=== PATIENT | male | born 1980 | race Native Hawaiian/Other Pacific Islander ===

== ENCOUNTER → 2024-01-15 13:44 | Outpatient (CLI) | payer OTHER, SELFPAY ==
--- NOTE | 2024-01-15 13:51 | DI.RAD.S_ITS ---
PROCEDURE: XR LUMBAR SPINE 2-3V INDICATIONS: SPINE PAIN TECHNIQUE: 3 views of the lumbar spine were acquired. COMPARISON: None. FINDINGS: Bones: 5 [id number] vertebrae are present. There is normal bony alignment. Degenerative endplate changes are noted at L3-4 through L5-S1 levels. No vertebral body compression fractures. No suspicious bony lesions. Soft tissues: Overlying bowel gas pattern is normal. No suspicious soft tissue calcifications. IMPRESSION: Mild degenerative disc disease in lower lumbar spine. No compression fracture or spondylolisthesis. Dictated by: Devyn Rivera M.D. on 01/15/2024 at 15:47 Approved by: Devyn Rivera M.D. on 01/15/2024 at 15:47
== END ==
PROVIDERS: Referring Provider Chiropractor; Visit Provider Chiropractor
DX: S33.5XXA Sprain of ligaments of lumbar spine, initial encounter (principal); X58.XXXA Exposure to other specified factors, initial encounter
CPT/HCPCS: 72100

== ENCOUNTER 2024-02-29 10:20 | Emergency (ER) | payer OTHER, SELFPAY ==
[2024-02-29] VITALS (8 sets, daily range): BP systolic 115–131; BP diastolic 77–88; PULSE 69–83; RESP 18; TEMP 36.3; O2SAT 97–99; BMI 30.9
[2024-02-29 11:16] LABS: Add Manual Diff / Slide Review NO; Basophils Absolute Auto 100 /uL (0-100); Basophils Percent Auto 1.4 % (0-2); Eosinophils Absolute Auto 100 /uL (0-450); Eosinophils Percent Auto 1.9 % (2-4); Hematocrit 40.1 % (41-53); Lymphocytes Absolute Auto 2200 /uL (1100-4500); Lymphocytes Percent Auto 28.3 % (25-40); Mean Corpuscular HGB Conc 34.9 % (30-36); Mean Corpuscular Hemoglobin 29.9 PG (26-34); Mean Corpuscular Volume 85.7 fL (80-100); Monocytes Absolute Auto 700 /uL (0-900); Monocytes Percent Auto 8.7 % (3-14); Neutrophils Absolute Auto 4600 /uL (1500-7000); Neutrophils Percent Auto 59.7 % (50-75); Platelet Count 340 X10^3/uL (150-400); Red Blood Cell Count 4.67 X10^6/uL (4.5-5.9); Red Cell Distribution Width 14.8 % (11.6-14.8); White Blood Cell Count 7.6 X10^3/uL (4.5-11.0)
[2024-02-29 11:25] LABS: Alanine Aminotransferase 146 IU/L (<50); Albumin 4.6 g/dL (3.5-5.0); Albumin Globulin Ratio 1.1 (1.0-2.8); Alkaline Phosphatase 324 U/L (38-126); Aspartate Aminotransferase 92 IU/L (17-59); BUN Creatinine Ratio 17.1 (6-22); Bilirubin Total 3.6 mg/dL (0.2-1.3); Blood Urea Nitrogen 14 mg/dL (9-20); Calcium 9.6 mg/dL (8.4-10.2); Carbon Dioxide 25 mmol/L (22-32); Chloride 107 mmol/L (98-107); Estimated Glomerular Filt Rate > 60 mL/min (>60); Globulin 4.1 g/dL (1.7-4.1); Glucose 125 mg/dL (70-100); HEMOLYSIS 16 (0-50); Lipase 520 U/L (23-300); Potassium 4.3 mmol/L (3.4-5.1); Sodium 138 mmol/L (137-145); Total Protein 8.7 g/dL (6.3-8.2)
--- NOTE | 2024-02-29 11:31 | DI.US.S_ITS ---
PROCEDURE: US ABDOMEN LIMITED INDICATIONS: Itching, hyperbilirubinemia, transaminitis TECHNIQUE: Real-time focused scanning was performed of the abdomen, with image documentation. COMPARISON: None. FINDINGS: Liver is within normal limits. 7 mm polyp within the anterior wall of the gallbladder. No evidence of gallbladder wall thickening. Mild intrahepatic biliary ductal dilatation. Pancreas is not well seen. IMPRESSION: 1. No acute process. 2. Gallbladder polyp. 3. Mild intrahepatic biliary ductal dilatation. Dictated by: Mell Peoples M.D. on 02/29/2024 at 12:50 Approved by: Mell Peoples M.D. on 02/29/2024 at 12:51
--- NOTE | 2024-02-29 11:31 | ED_ITS ---
HPI - General Adult General Chief complaint: Abdominal Pain Stated complaint: itching on body, dark urine, yellow on eye Time Seen by Provider: 02/29/24 11:21 Source: patient Mode of arrival: Ambulatory History of Present Illness HPI narrative: Patient is a 43-year-old male who comes in the emergency department for evaluation of several days of itching all over his body. He also reports dark- colored urine. He states his states that he has yellow colored eyes. He denies any fevers. He has drank alcohol in the past but not for several months. Reports no abdominal pain. No change in bowel habits. No skin rashes. No fevers. He does report a weight loss over the past several weeks as well. He was scheduled to see a new primary doctor in the next several days. Related Data Allergies Allergy/AdvReac Type Severity Reaction Status Date / Time No Known Drug Allergies Allergy Verified 02/29/24 10:56 Review of Systems Review of Systems ROS Unobtainable: All systems reviewed & are unremarkable except as noted in HPI and below Patient History Social History Smoking Status: Current some day smoker Smoking Status: Current some day smoker tobacco type: vaping alcohol intake frequency: 0-2 drinks per day Exam Initial Vital Signs Initial Vital Signs: Vital Signs Temperature 97.4 F L 02/29/24 10:51 Pulse Rate 83 02/29/24 10:51 Respiratory Rate 18 02/29/24 10:51 Blood Pressure 131/79 02/29/24 10:51 Pulse Oximetry 98 02/29/24 10:51 Oxygen Delivery Method Room Air 02/29/24 10:51 Const General: cooperative, comfortable and No ill appearing [facility] Head: normal to inspection and normocephalic Eyes Other: Mild scleral icterus GI Inspection: normal to inspection and non-distended Skin General: no rashes or lesions noted and No jaundice Neuro General: patient alert, patient awake and moves all extremities Extrem General: normal to inspection and capillary refill normal Course Orders Ordered: ED Orders 02/29/24 11:00 Acetaminophen Stat Complete Blood Count AUTO DIFF Stat Comprehensive Metabolic Panel Stat Ethanol (ETOH) Stat Hepatitis Acute Panel Stat Lipase Stat 02/29/24 11:31 US abdomen limited Stat 02/29/24 12:05 Urine Culture Stat Urine Microscopic Stat Discontinued Medications Ondansetron HCl (Ondansetron 4 Mg/2 Ml Inj) 4 mg IV NOW PRN PRN Reason: Nausea And Vomiting Ondansetron HCl (Ondansetron 4 Mg Odt) 4 mg PO NOW PRN PRN Reason: Nausea And Vomiting Vital Signs Vital signs: Vital Signs - 8 hr 02/29/24 10:51 02/29/24 11:23 02/29/24 11:23 Temperature 97.4 F L Pulse Rate 83 81 Respiratory Rate 18 Blood Pressure 131/79 124/84 Pulse Oximetry 98 99 Oxygen Delivery Method Room Air 02/29/24 11:30 02/29/24 11:30 02/29/24 12:00 Temperature Pulse Rate 79 77 Respiratory Rate Blood Pressure 129/88 Pulse Oximetry 99 97 Oxygen Delivery Method Room Air 02/29/24 12:01 02/29/24 12:01 02/29/24 12:30 Temperature Pulse Rate 78 74 Respiratory Rate Blood Pressure 122/81 Pulse Oximetry 99 99 Oxygen Delivery Method 02/29/24 12:31 02/29/24 12:31 02/29/24 13:00 Temperature Pulse Rate 74 69 Respiratory Rate Blood Pressure 115/83 Pulse Oximetry 99 99 Oxygen Delivery Method 02/29/24 13:00 Temperature Pulse Rate Respiratory Rate Blood Pressure 116/77 Pulse Oximetry Oxygen Delivery Method Medical Decision Making Lab Data Lab results reviewed: Yes I reviewed the patient's lab results. 02/29/24 11:00 02/29/24 11:00 Labs: Lab Results 02/29/24 02/29/24 Range/Units 11:00 12:05 WBC 7.6 (4.5-11.0) X10^3/uL RBC 4.67 (4.5-5.9) X10^6/uL Hgb 14.0 (13.5-17.5) g/dL Hct 40.1 L (41-53) % MCV 85.7 (80-100) fL MCH 29.9 (26-34) PG MCHC 34.9 (30-36) % RDW 14.8 (11.6-14.8) % Plt Count 340 (150-400) X10^3/uL Neut % (Auto) 59.7 (50-75) % Lymph % (Auto) 28.3 (25-40) % [place] % (Auto) 8.7 (3-14) % Eos % (Auto) 1.9 L (2-4) % Baso % (Auto) 1.4 (0-2) % Neut # (Auto) 4600 (9648-4507) /uL Lymph # (Auto) 2200 (0321-5537) /uL [place] # (Auto) 700 (0-900) /uL Eos # (Auto) 100 (0-450) /uL Baso # (Auto) 100 (0-100) /uL Sodium 138 (137-145) mmol/L Potassium 4.3 (3.4-5.1) mmol/L Chloride 107 (98-107) mmol/L Carbon Dioxide 25 (22-32) mmol/L BUN 14 (9-20) mg/dL Creatinine 0.82 (0.66-1.25) mg/dL Estimated GFR > 60 (>60) mL/min BUN/Creatinine Ratio 17.1 (6-22) Glucose 125 H (70-100) mg/dL Calcium 9.6 (8.4-10.2) mg/dL Total Bilirubin 3.6 H (0.2-1.3) mg/dL AST 92 H (17-59) IU/L ALT 146 H (<50) IU/L Alkaline Phosphatase 324 H (38-126) U/L Total Protein 8.7 H (6.3-8.2) g/dL Albumin 4.6 (3.5-5.0) g/dL Globulin 4.1 (1.7-4.1) g/dL Albumin/Globulin Ratio 1.1 (1.0-2.8) Lipase 520 H (23-300) U/L Urine RBC None seen (0-5/HPF) Urine WBC None seen (0-5/HPF) Ur Squamous Epith Cells 0-1 /hpf (0-5/HPF) Urine Bacteria None seen (None) Hyaline Casts 5-10/lpf (None) Vol Urine Centrifuged 10ml (spun) Acetaminophen < 10 (10-30) ug/mL Ethyl Alcohol < 10 ( - 10) mg/dL Urine Dip Bedside Urine Glucose Negative Bedside Urine Bilirubin - Negative Bedside Urine Ketone - Negative Urine Specific [place] 1.020 Bedside Urine Occult Blood - Negative Bedside Urine pH 5.5 Bedside Urine Protein + 30 Bedside Urine Urobilinogen - Negative Bedside Urine Nitrite - Negative Bedside Urine Leukocytes - Negative Esterase Point of care testing: Urine Dip Bedside Urine Glucose Negative Bedside Urine Bilirubin - Negative Bedside Urine Ketone - Negative Urine Specific [place] 1.020 Bedside Urine Occult Blood - Negative Bedside Urine pH 5.5 Bedside Urine Protein + 30 Bedside Urine Urobilinogen - Negative Bedside Urine Nitrite - Negative Bedside Urine Leukocytes - Negative Esterase Imaging Data US - abdomen: Radiologist's Impression: PROCEDURE: US ABDOMEN LIMITED INDICATIONS: Itching, hyperbilirubinemia, transaminitis TECHNIQUE: Real-time focused scanning was performed of the abdomen, with image documentation. COMPARISON: None. FINDINGS: Liver is within normal limits. 7 mm polyp within the anterior wall of the gallbladder. No evidence of gallbladder wall thickening. Mild intrahepatic biliary ductal dilatation. Pancreas is not well seen. IMPRESSION: 1. No acute process. 2. Gallbladder polyp. 3. Mild intrahepatic biliary ductal dilatation. MDM Narrative Medical decision making narrative: Patient does have an elevation in his LFTs and bilirubin. His right upper quadrant ultrasound is unremarkable. No signs of acute cholecystitis. No indication for emergent surgical consultation. No indication for admission to the hospital. Will discharge the patient home. He has a follow-up on Thursday this week with his primary care doctor. He was given a copy of his labs and his ultrasound. Advised that he talk with his primary doctor about further evaluation and treatment. He expressed understanding and agreement with plan. Discharge Plan Departure Patient Disposition: Home Clinical Impression: Transaminitis, Hyperbilirubinemia Activity Restrictions/Additional Instructions: Recommend that you keep your scheduled appointment with your primary care provider's office later this week. Show them the labs that we did today and also the ultrasound. You can discuss with him further workup of your elevated liver function tests. Return to the emergency department for new or worsening symptoms. Stand Alone Forms: Patient Portal/API
[2024-02-29 11:58] LABS: Acetaminophen < 10 ug/mL (10-30)
[2024-02-29 11:59] LABS: Ethanol (ETOH) < 10 mg/dL
[2024-02-29 12:20] LABS: Bacteria Urine None Seen; Hyaline Casts Urine 5-10/LPF; RBC Urine None Seen (0-5/HPF); Squamous Epithelial Cell Urine 0-1 /HPF (0-5/HPF); Urine Volume 10mL (spun); WBC Urine None Seen (0-5/HPF)
[2024-03-01 03:36] LABS: HBsAg Screen Negative (Negative); Hepatitis A Antibody IgM Negative (Negative); Hepatitis B Core Antibody IgM Negative (Negative); Hepatitis C Antibody Non Reactive (Non Reactive)
== END 2024-02-29 13:30 | disposition home or self-care (01) ==
PROVIDERS: Emergency Provider Emergency Medicine
DX: E80.6 Other disorders of bilirubin metabolism (principal); R74.01 Elevation of levels of liver transaminase levels
CPT/HCPCS: 36415; 76705; 80053; 80074; 80320; 80329; 81003; 81015; 83690; 85025; 87086; 99283; 99284; G0480

== ENCOUNTER → 2024-03-18 10:46 | Outpatient (CLI) | payer OTHER, SELFPAY ==
--- NOTE | 2024-03-18 10:47 | DI.MRI.S_ITS ---
PROCEDURE: MR ABDOMEN WO/W CON INDICATIONS: Abnormal levels of other serum enzymes TECHNIQUE: Coronal HASTE, axial 2D FLASH in- and [id number]; axial breath-hold T2 FSE. Dynamic axial VIBE during the administration of contrast; post-contrast coronal VIBE or 2D FLASH with fat saturation from the hepatic dome to the iliac crests. Optional diffusion weighted imaging and ADC may be performed. COMPARISON: [facility], US, US ABDOMEN LIMITED, 02/29/2024, 12:05. [employer], US, US ABDOMEN LIMITED, 01/15/2024, 10:51. FINDINGS: Image quality: Decreased due to prominent motion artifact. Lung bases: No pleural or pericardial effusions. Liver: Elongated left hepatic lobe. Normal hepatic signal. Smooth margin. Gallbladder: Normal gallbladder wall thickening. There is a single enhancing nodular focus adherent to the superior wall consistent with known polyp. Other stones and polyps are not well seen on this exam. Biliary ducts: Moderate diffuse intrahepatic biliary dilatation extending to the periphery in right and left hepatic lobes. The extrahepatic common duct is nondilated. There is an area of enhancement at the biliary confluence in the amanda hepatis measuring roughly 1.5 x 1.3 cm which may be a central obstructing lesion. Pancreas: Normal enhancement. No ductal dilatation. Spleen: Size is within normal limits. Adrenal Glands: No adrenal nodules. Kidneys and Ureters: No hydronephrosis. No solid mass. No complex renal cystic lesion which requires follow up. Stomach and Bowel: Stomach and visible bowel loops are within normal limits. Peritoneum: No abnormal intraperitoneal fluid. No free air. Ventral Wall: No hernia. Abdominal Nodes: There is enlarged portacaval lymph node measuring about 1.3 cm short axis. There is a prominent peripancreatic/periceliac lymph node just superior to this level. No distal retroperitoneal adenopathy. Vessels: The abdominal aorta, IVC, and portal vein are of normal caliber. Bones: No aggressive osseous abnormality. IMPRESSION: Findings suspicious for an intrahepatic/amanda hepatis enhancing mass causing left and right intrahepatic biliary obstruction. There is adjacent adenopathy and findings are suspicious for malignancy, specifically cholangiocarcinoma. ERCP with brushings is recommended. Correlate with CA 19 nine levels. Dictated by: Jesusita Llanos M.D. on 03/18/2024 at 12:29 Approved by: Jesusita Llanos M.D. on 03/18/2024 at 12:47
== END ==
LOC: MRI 10:46
PROVIDERS: Referring Provider Nurse Practitioner Family; Visit Provider Nurse Practitioner Family
DX: R59.0 Localized enlarged lymph nodes (principal); R74.8 Abnormal levels of other serum enzymes; R94.5 Abnormal results of liver function studies; R79.89 Other specified abnormal findings of blood chemistry; R77.8 Other specified abnormalities of plasma proteins
CPT/HCPCS: 74183; A9579

== ENCOUNTER 2024-05-16 16:04 | Inpatient (IN) | payer OTHER, SELFPAY ==
[2024-05-16] VITALS (17 sets, daily range): BP systolic 92–191; BP diastolic 51–87; PULSE 97–140; RESP 18–45; TEMP 35.5–39.5; O2SAT 94–99; BMI 31.4
--- NOTE | 2024-05-16 16:33 | EKG_ITS ---
[address] [address] Test Date: 2024-05-16 Pat Name: Sarah Schulte Department: [facility] Room: Gender: Male Counseling Specialist: ZAKIA : [id number] Requested By: Order Number: [id number] Reading MD: Wets Briceno Measurements Intervals [place] Rate: 131 P: 46 AK: 142 QRS: -14 QRSD: 78 T: 45 QT: 302 QTc: 445 Interpretive Statements Sinus tachycardia Electronically Signed On 05-17-2024 9:22:16 PDT by [place]ric[place]
[2024-05-16 17:02] LABS: Add Manual Diff / Slide Review NO; Basophils Absolute Auto 0 /uL (0-100); Basophils Percent Auto 0.2 % (0-2); Eosinophils Absolute Auto 0 /uL (0-450); Hematocrit 39.1 % (41-53); Hemoglobin 13.7 g/dL (13.5-17.5); Lymphocytes Absolute Auto 500 /uL (1100-4500); Lymphocytes Percent Auto 6.1 % (25-40); Mean Corpuscular Hemoglobin 29.7 PG (26-34); Mean Corpuscular Volume 84.8 fL (80-100); Monocytes Absolute Auto 500 /uL (0-900); Neutrophils Absolute Auto 7700 /uL (1500-7000); Neutrophils Percent Auto 87.7 % (50-75); Platelet Count 167 X10^3/uL (150-400); Red Blood Cell Count 4.61 X10^6/uL (4.5-5.9); Red Cell Distribution Width 12.7 % (11.6-14.8); White Blood Cell Count 8.8 X10^3/uL (4.5-11.0)
[2024-05-16 17:09] LABS: Influenza A - CEPHEID Flu A NEGATIVE (NEGATIVE); Influenza B - CEPHEID Flu B NEGATIVE (NEGATIVE); Respiratory Syncytial Virus Negative (Negative)
[2024-05-16 17:10] LABS: COVID-19 CEPHEID 4-PLEX PCR Negative (Negative)
[2024-05-16 17:14] LABS: Lactate (Lactic Acid) 2.3 mmol/L (0.7-2.1)
[2024-05-16] MEDS: SODIUM CHLORIDE 0.9% 1,000 ML 1000 ML IV ×3 (17:14→22:07)
[2024-05-16] MEDS: CEFEPIME 2 GM in SODIUM CHLORIDE 0.9% 100 ML IV (17:14)
[2024-05-16 17:15] LABS: Alanine Aminotransferase 58 IU/L (<50); Albumin 4.1 g/dL (3.5-5.0); Albumin Globulin Ratio 1.1 (1.0-2.8); Alkaline Phosphatase 136 U/L (38-126); Aspartate Aminotransferase 33 IU/L (17-59); BUN Creatinine Ratio 22.9 (6-22); Bilirubin Total 0.9 mg/dL (0.2-1.3); Bilirubin Unconjugated 0.6 mg/dL (0.0-1.1); Blood Urea Nitrogen 35 mg/dL (9-20); Calcium 9.2 mg/dL (8.4-10.2); Carbon Dioxide 24 mmol/L (22-32); Chloride 93 mmol/L (98-107); Estimated Glomerular Filt Rate 58 mL/min (>60); Globulin 3.8 g/dL (1.7-4.1); Glucose 238 mg/dL (70-100); HEMOLYSIS < 15 (0-50); Lipase 155 U/L (23-300); Potassium 3.8 mmol/L (3.4-5.1); Sodium 128 mmol/L (137-145); Total Protein 7.9 g/dL (6.3-8.2)
[2024-05-16 17:32] LABS: Procalcitonin 21.3 ng/mL (<0.5)
--- NOTE | 2024-05-16 18:00 | DI.RAD.S_ITS ---
PROCEDURE: XR CHEST 1V INDICATIONS: FEVER, COUGH X1 DAY TECHNIQUE: One view of the chest was acquired. COMPARISON: None. FINDINGS: Surgical changes and devices: Right Port-A-Cath with the distal tip at the cavoatrial junction Lungs and pleura: Low lung volumes. No focal consolidation. No pneumothorax or pleural effusion. Mediastinum: Mediastinal contours appear normal. Heart size is normal. Bones and chest wall: No suspicious bony lesions. Overlying soft tissues appear unremarkable. IMPRESSION: No acute cardiothoracic process. Dictated by: Bobo Huertas M.D. on 05/16/2024 at 19:17 Approved by: Bobo Huertas M.D. on 05/16/2024 at 19:18
--- NOTE | 2024-05-16 18:06 | ED.HA ---
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 Patient received his 1st dose of immunotherapy 6 days ago. Last night patient began to feel chilled all over with intense shaking and feeling poorly. His significant other called his chemotherapy office for advice, and they referred him to the emergency department for evaluation. Records from [facility] show patient received C1D1 of durvalumab, gemcitabine, and cisplatin on 05/11/24. Pathology report read as ?atypical glandular cells with crush artifact, suspicious for adenocarcinoma? Related Data Home Medications Medication Instructions Recorded Confirmed allopurinol 100 mg tablet 100 mg PO BID PRN Gout 05/16/24 05/16/24 atorvastatin 40 mg tablet 40 mg PO DAILY 05/16/24 05/16/24 colchicine 0.6 mg tablet 0.6 mg PO DAILY PRN Gout 05/16/24 05/16/24 empagliflozin 25 mg tablet 12.5 mg PO DAILY 05/16/24 05/16/24 (Jardiance) ibuprofen 800 mg tablet 800 mg PO Q6H PRN Pain (Scale 05/16/24 05/16/24 Score 4-6) lisinopril 20 1 tab PO DAILY 05/16/24 05/16/24 mg-hydrochlorothiazide 12.5 mg tablet metformin 500 mg tablet 500 mg PO DAILY 05/16/24 05/16/24 ondansetron 8 mg disintegrating 8 mg PO Q8H PRN Nausea 05/16/24 05/16/24 tablet prochlorperazine maleate 10 mg 10 mg PO Q6H PRN Nausea 05/16/24 05/16/24 tablet (Compazine) Allergies Allergy/AdvReac Type Severity Reaction Status Date / Time No Known Drug Allergies Allergy Verified 02/29/24 10:56 Patient History Social History household members: spouse Smoking Status: Current some day smoker alcohol intake: former Smoking Status: Current some day smoker tobacco type: vaping alcohol intake frequency: 0-2 drinks per day Substance Use Type: does not use Exam Initial Vital Signs Initial Vital Signs: Vital Signs Temperature 96 F L 05/16/24 16:19 Pulse Rate 122 H 05/16/24 16:19 Respiratory Rate 22 05/16/24 16:19 Blood Pressure 106/58 L 05/16/24 16:19 Pulse Oximetry 98 05/16/24 16:19 Oxygen Delivery Method Room Air 05/16/24 16:19 Const: Awake, alert, nontoxic appearing Cardiac: Tachycardia, regular rhythm RESP: unlabored, clear bilaterally, no wheezing GI: Soft, nontender, nondistended, no rebound, no guarding Skin: Warm, Dry, intact, no rashes Neuro: AO x3, CN II-XII grossly intact, moves all extremities Course Orders Ordered: ED Orders 05/16/24 16:28 Covid-19 + FLU A/B + RSV - PCR Stat 05/16/24 16:33 EKG-12 Lead Stat 05/16/24 16:53 Basic Metabolic Panel Stat Complete Blood Count AUTO DIFF Stat Hepatic (Liver) Panel Stat Lactate (Lactic Acid) Stat Lipase Stat Procalcitonin Stat 05/16/24 17:11 Blood Culture Stat 05/16/24 18:00 Chest [XR chest 1V] Stat 05/16/24 19:20 Urinalysis and Microscopic Stat Urine Culture Stat 05/16/24 20:00 CT head/brain wo con Stat 05/16/24 21:44 EKG-12 Lead Stat Discontinued Medications Acetaminophen (Acetaminophen 325 Mg Tablet) 975 mg PO NOW ONE Stop: 05/16/24 20:51 Last Admin: 05/16/24 21:03 Dose: 975 mg Documented By: JANES Diphenhydramine HCl (Diphenhydramine 50 Mg/Ml Vial) 50 mg IV NOW ONE Stop: 05/16/24 18:07 Last Admin: 05/16/24 18:19 Dose: 50 mg Documented By: KEVIN Sodium Chloride (Normal Saline 0.9%) 1,000 mls @ 1,000 mls/hr IV BOLUS ONE Stop: 05/16/24 17:31 Last Infusion: 05/16/24 18:19 Dose: Infused Documented By: Admin: 05/16/24 17:14 Dose: 1,000 mls/hr Documented By: KEVIN Ceftriaxone Sodium 1,000 mg/ (Sodium Chloride) 100 mls @ 200 mls/hr IV NOW ONE Stop: 05/16/24 16:33 Last Admin: 05/16/24 17:15 Dose: Not Given Documented By: KEVIN Cefepime HCl 2 gm/ Sodium (Chloride) 100 mls @ 200 mls/hr IV NOW ONE Stop: 05/16/24 16:35 Last Infusion: 05/16/24 17:44 Dose: Infused Documented By: FLBartolome Admin: 05/16/24 17:14 Dose: 200 mls/hr Documented By: KEVIN Sodium Chloride (Normal Saline 0.9%) 1,000 mls @ 1,000 mls/hr IV BOLUS ONE Stop: 05/16/24 19:17 Last Infusion: 05/16/24 20:36 Dose: Infused Documented By: Admin: 05/16/24 18:21 Dose: 1,000 mls/hr Documented By: KEVIN Sodium Chloride (Normal Saline 0.9%) 1,000 mls @ 1,000 mls/hr IV BOLUS ONE Stop: 05/16/24 23:06 Last Admin: 05/16/24 22:07 Dose: 1,000 mls/hr Documented By: JANES Metoclopramide HCl (Metoclopramide 10 Mg/2 Ml Inj) 10 mg IV NOW ONE Stop: 05/16/24 18:07 Last Admin: 05/16/24 18:19 Dose: 10 mg Documented By: KEVIN Metoprolol Tartrate (Metoprolol Tartrate 5 Mg/5 Ml Inj) 5 mg IV NOW ONE Stop: 05/16/24 21:24 Last Admin: 05/16/24 21:52 Dose: 5 mg Documented By: JANES Vital Signs Vital signs: Vital Signs - 8 hr 05/16/24 16:19 05/16/24 17:24 05/16/24 17:25 Temperature 96 F L Pulse Rate 122 H 104 H 103 H Respiratory Rate 22 Blood Pressure 106/58 L Pulse Oximetry 98 Oxygen Delivery Method Room Air 05/16/24 17:25 05/16/24 17:30 05/16/24 18:00 Temperature Pulse Rate 104 H 104 H Respiratory Rate 22 26 H Blood Pressure 101/57 L Pulse Oximetry Oxygen Delivery Method 05/16/24 18:30 05/16/24 19:00 05/16/24 19:07 Temperature Pulse Rate 97 H 99 H 101 H Respiratory Rate 38 H 41 H 30 H Blood Pressure 122/67 Pulse Oximetry 99 94 97 Oxygen Delivery Method 05/16/24 19:30 05/16/24 20:00 05/16/24 20:49 Temperature 101.7 F H Pulse Rate 104 H 105 H Respiratory Rate 39 H 29 H Blood Pressure 122/69 130/72 Pulse Oximetry 98 97 Oxygen Delivery Method 05/16/24 21:00 05/16/24 21:31 05/16/24 22:00 Temperature Pulse Rate 133 H 140 H Respiratory Rate 45 H 33 H Blood Pressure 191/87 H 112/58 L 99/51 L Pulse Oximetry 94 96 Oxygen Delivery Method Room Air Room Air 05/16/24 22:00 Temperature 103.1 F H Pulse Rate 110 H Respiratory Rate 42 H Blood Pressure 99/51 L Pulse Oximetry 94 Oxygen Delivery Method Room Air MDM - Headache Differential Diagnosis Differential diagnosis: Likely tension headache, headache and sinusitis Lab Data 05/16/24 16:53 05/16/24 16:53 Labs: Lab Results 05/16/24 05/16/24 05/16/24 Range/Units 16:28 16:53 18:46 WBC 8.8 (4.5-11.0) X10^3/uL RBC 4.61 (4.5-5.9) X10^6/uL Hgb 13.7 (13.5-17.5) g/dL Hct 39.1 L (41-53) % MCV 84.8 (80-100) fL MCH 29.7 (26-34) PG MCHC 35.0 (30-36) % RDW 12.7 (11.6-14.8) % Plt Count 167 (150-400) X10^3/uL Neut % (Auto) 87.7 H (50-75) % Lymph % (Auto) 6.1 L (25-40) % [place] % (Auto) 6.0 (3-14) % Eos % (Auto) 0.0 L (2-4) % Baso % (Auto) 0.2 (0-2) % Neut # (Auto) 7700 H (5390-6639) /uL Lymph # (Auto) 500 L (2571-5470) /uL [place] # (Auto) 500 (0-900) /uL Eos # (Auto) 0 (0-450) /uL Baso # (Auto) 0 (0-100) /uL Sodium 128 L (137-145) mmol/L Potassium 3.8 (3.4-5.1) mmol/L Chloride 93 L (98-107) mmol/L Carbon Dioxide 24 (22-32) mmol/L BUN 35 H (9-20) mg/dL Creatinine 1.53 H (0.66-1.25) mg/dL Estimated GFR 58 L (>60) mL/min BUN/Creatinine Ratio 22.9 H (6-22) Glucose 238 H (70-100) mg/dL Lactate 2.3 H 1.1 (0.7-2.1) mmol/L Calcium 9.2 (8.4-10.2) mg/dL Total Bilirubin 0.9 (0.2-1.3) mg/dL Conjugated Bilirubin 0.0 (0.0-0.3) md/dL Unconjugated Bilirubin 0.6 (0.0-1.1) mg/dL AST 33 (17-59) IU/L ALT 58 H (<50) IU/L Alkaline Phosphatase 136 H (38-126) U/L Total Protein 7.9 (6.3-8.2) g/dL Albumin 4.1 (3.5-5.0) g/dL Globulin 3.8 (1.7-4.1) g/dL Albumin/Globulin Ratio 1.1 (1.0-2.8) Lipase 155 (23-300) U/L Procalcitonin 21.3 H (<0.5) ng/mL Urine Color Urine Appearance Urine pH (4.5-8.0) Ur Specific [place] (1.000-1.035) Urine Protein (Negative) Urine Glucose (UA) (Negative) g/dL Urine Ketones (NEGATIVE) Urine Occult Blood (Negative) Urine Nitrate (Negative) Urine Bilirubin (NEGATIVE) Urine Urobilinogen (0.2) E.U./dL Ur Leukocyte Esterase (NEGATIVE) Urine RBC (0-5/HPF) Urine WBC (0-5/HPF) Ur Squamous Epith Cells (0-5/HPF) Urine Bacteria (None) Urine Mucus (Negative) Ur Culture Indicated? Vol Urine Centrifuged SARS-CoV-2 (PCR) Negative (Negative) Influenza A (RT-PCR) Flu a negative (NEGATIVE) Influenza B (RT-PCR) Flu b negative (NEGATIVE) RSV (PCR) Negative (Negative) 05/16/24 Range/Units 19:20 WBC (4.5-11.0) X10^3/uL RBC (4.5-5.9) X10^6/uL Hgb (13.5-17.5) g/dL Hct (41-53) % MCV (80-100) fL MCH (26-34) PG MCHC (30-36) % RDW (11.6-14.8) % Plt Count (150-400) X10^3/uL Neut % (Auto) (50-75) % Lymph % (Auto) (25-40) % [place] % (Auto) (3-14) % Eos % (Auto) (2-4) % Baso % (Auto) (0-2) % Neut # (Auto) (1063-6103) /uL Lymph # (Auto) (3806-9576) /uL [place] # (Auto) (0-900) /uL Eos # (Auto) (0-450) /uL Baso # (Auto) (0-100) /uL Sodium (137-145) mmol/L Potassium (3.4-5.1) mmol/L Chloride (98-107) mmol/L Carbon Dioxide (22-32) mmol/L BUN (9-20) mg/dL Creatinine (0.66-1.25) mg/dL Estimated GFR (>60) mL/min BUN/Creatinine Ratio (6-22) Glucose (70-100) mg/dL Lactate (0.7-2.1) mmol/L Calcium (8.4-10.2) mg/dL Total Bilirubin (0.2-1.3) mg/dL Conjugated Bilirubin (0.0-0.3) md/dL Unconjugated Bilirubin (0.0-1.1) mg/dL AST (17-59) IU/L ALT (<50) IU/L Alkaline Phosphatase (38-126) U/L Total Protein (6.3-8.2) g/dL Albumin (3.5-5.0) g/dL Globulin (1.7-4.1) g/dL Albumin/Globulin Ratio (1.0-2.8) Lipase (23-300) U/L Procalcitonin (<0.5) ng/mL Urine Color Yellow Urine Appearance Clear Urine pH 5.5 (4.5-8.0) Ur Specific [place] 1.010 (1.000-1.035) Urine Protein Negative (Negative) Urine Glucose (UA) Negative (Negative) g/dL Urine Ketones Negative (NEGATIVE) Urine Occult Blood Negative (Negative) Urine Nitrate Negative (Negative) Urine Bilirubin Negative (NEGATIVE) Urine Urobilinogen 0.2 (0.2) E.U./dL Ur Leukocyte Esterase Negative (NEGATIVE) Urine RBC None seen (0-5/HPF) Urine WBC 0-1/hpf (0-5/HPF) Ur Squamous Epith Cells 0-1 /hpf (0-5/HPF) Urine Bacteria Occasional (0-1) (None) Urine Mucus 1+ H (Negative) Ur Culture Indicated? Cult not indicated Vol Urine Centrifuged 10ml (spun) SARS-CoV-2 (PCR) (Negative) Influenza A (RT-PCR) (NEGATIVE) Influenza B (RT-PCR) (NEGATIVE) RSV (PCR) (Negative) Imaging Data CT scan - head: Radiologist's Impression: PROCEDURE: CT HEAD/BRAIN WO CON INDICATIONS: headache, new pattern TECHNIQUE: Noncontrast 4.5 mm thick angled axial sections acquired from the foramen magnum to the vertex, with coronal and sagittal reformats. For radiation dose reduction, the following was used: automated exposure control, adjustment of mA and/or kV according to patient size. COMPARISON: None. FINDINGS: Image quality: Diagnostic. CSF spaces: Basal cisterns are patent. No extra-axial fluid collections. Ventricles are normal in size and shape. Brain: No midline shift. No intracranial masses or hemorrhage. Hoffman-white matter interface is normal. Skull and face: Calvarium and visualized facial bones are intact, without suspicious lesions. Sinuses: Visualized sinuses and mastoids are clear. IMPRESSION: No acute intracranial pathology. Dictated by: Rui Carroll M.D. on 05/16/2024 at 21:05 Approved by: Rui Carroll M.D. on 05/16/2024 at 21:07 Chest x-ray: Radiologist's Impression: PROCEDURE: XR CHEST 1V INDICATIONS: FEVER, COUGH X1 DAY TECHNIQUE: One view of the chest was acquired. COMPARISON: None. FINDINGS: Surgical changes and devices: Right Port-A-Cath with the distal tip at the cavoatrial junction Lungs and pleura: Low lung volumes. No focal consolidation. No pneumothorax or pleural effusion. Mediastinum: Mediastinal contours appear normal. Heart size is normal. Bones and chest wall: No suspicious bony lesions. Overlying soft tissues appear unremarkable. IMPRESSION: No acute cardiothoracic process. Dictated by: Bobo Huertas M.D. on 05/16/2024 at 19:17 Approved by: Bobo Huertas M.D. on 05/16/2024 at 19:18 ECG Data Interpretation: Sinus tachycardia at 131 beats per minute. Normal [place], no ST T wave changes, no STEMI MDM Narrative Medical decision making narrative: Patient with history of probable immunotherapy presenting for fevers, sweats. Initially afebrile in the emergency department but subsequently developed fever and tachycardia. No obvious source based on exam, x-ray, urine. Elevated procalcitonin suggestive of underlying bacterial infection. Due to history of recent immunotherapy and chemotherapy administration patient given cefepime for broad-spectrum coverage. Discussed possibility of lumbar puncture with the patient given his history of headache and fever with no identifiable source, patient declined at this time. Patient to be admitted for further evaluation and treatment. Discharge Plan Departure Patient Disposition: Admitted As Inpatient Clinical Impression: Fever, Elevated procalcitonin Admit Date/Time: 05/16/24 22:15 Admit Provider: Lui Galaviz
[2024-05-16] MEDS: diphenhydrAMINE 50 MG/ML VIAL IV (18:19)
[2024-05-16] MEDS: METOCLOPRAMIDE 10 MG/2 ML INJ IV (18:19)
[2024-05-16 18:35] LABS: Reflexed Lactate in 2 Hours Y
[2024-05-16 19:04] LABS: Lactate 2HR (Lactic Acid Rflx) 1.1 mmol/L (0.7-2.1)
[2024-05-16 19:46] LABS: Appearance Urine UA CLEAR; Bilirubin Urine UA NEGATIVE (NEGATIVE); Color Urine UA YELLOW; Glucose Urine UA NEGATIVE (Negative); Ketones Urine UA NEGATIVE (NEGATIVE); Leukocyte Esterase Urine UA NEGATIVE (NEGATIVE); Nitrite Urine UA NEGATIVE (Negative); Occult Blood Urine UA NEGATIVE (Negative); Protein Urine UA NEGATIVE (Negative); Urobilinogen Urine UA 0.2 E.U./dL (0.2); pH Urine UA 5.5 (4.5-8.0)
[2024-05-16 19:51] LABS: Urine Volume 10mL (spun)
[2024-05-16 19:52] LABS: Bacteria Urine Occasional (0-1); Culture Indicated Urine Cult Not Indicated; Mucus Urine 1+ (Negative); RBC Urine None Seen (0-5/HPF); Squamous Epithelial Cell Urine 0-1 /HPF (0-5/HPF); WBC Urine 0-1/HPF (0-5/HPF)
--- NOTE | 2024-05-16 20:00 | DI.CT.S_ITS ---
PROCEDURE: CT HEAD/BRAIN WO CON INDICATIONS: headache, new pattern TECHNIQUE: Noncontrast 4.5 mm thick angled axial sections acquired from the foramen magnum to the vertex, with coronal and sagittal reformats. For radiation dose reduction, the following was used: automated exposure control, adjustment of mA and/or kV according to patient size. COMPARISON: None. FINDINGS: Image quality: Diagnostic. CSF spaces: Basal cisterns are patent. No extra-axial fluid collections. Ventricles are normal in size and shape. Brain: No midline shift. No intracranial masses or hemorrhage. Hoffman-white matter interface is normal. Skull and face: Calvarium and visualized facial bones are intact, without suspicious lesions. Sinuses: Visualized sinuses and mastoids are clear. IMPRESSION: No acute intracranial pathology. Dictated by: Rui Carroll M.D. on 05/16/2024 at 21:05 Approved by: Rui Carroll M.D. on 05/16/2024 at 21:07
[2024-05-16] MEDS: ACETAMINOPHEN 325 MG TABLET 975 MG PO (21:03)
--- NOTE | 2024-05-16 21:44 | EKG_ITS ---
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
[2024-05-16] MEDS: METOPROLOL TARTRATE 5 MG/5 ML INJ IV (21:52)
[2024-05-17] VITALS (48 sets, daily range): BP systolic 84–130; BP diastolic 48–86; PULSE 91–135; RESP 18–38; TEMP 36.2–39.6; O2SAT 93–100
[2024-05-17] MEDS: VANCOMYCIN 1,500 MG/300 ML PIGGYBACK 200 MG IV (01:58)
[2024-05-17] MEDS: LACTATED RINGERS 1,000 ML 1000 ML IV (03:29)
[2024-05-17] MEDS: ACETAMINOPHEN IV 1,000 MG/100 ML VIAL 400 MG IV ×2 (03:37→20:35)
--- NOTE | 2024-05-17 03:51 | PM.HP.1 ---
History of Present Illness History of Present Illness Date Patient Seen: 05/17/24 Chief complaint: cold sweats, headache Narrative: 43 y/o with PMH of HLD, HTN, NIDDM and recently diagnosed billiary adenocarcinoma, who had [facility] round [facility] with durvalumab, gemcitabine, and cisplatin, presented septic. Since yesterday he had constant chills and low grade fever. On admission hypotensive, tachycardic, febrile. Initial workup with unremarkable CXR and UA. Complains on epigastric tenderness. He had several loose stools in the few hours of admission. Admitted with sepsis, likely GI origin with underlying stricture. [facility] Medical History (Updated 05/17/24 @ 04:14 by Lui Lolyd MD) HLD (hyperlipidemia) Diabetes HTN (hypertension) Social History household members: spouse Smoking Status: Current some day smoker alcohol intake: former Meds Home Medications and Allergies Home Medications Medication Instructions Recorded Confirmed Type allopurinol 100 mg tablet 100 mg PO BID PRN Gout 05/16/24 05/16/24 History atorvastatin 40 mg tablet 40 mg PO DAILY 05/16/24 05/16/24 History colchicine 0.6 mg tablet 0.6 mg PO DAILY PRN Gout 05/16/24 05/16/24 History empagliflozin 25 mg tablet 12.5 mg PO DAILY 05/16/24 05/16/24 History (Jardiance) ibuprofen 800 mg tablet 800 mg PO Q6H PRN Pain (Scale 05/16/24 05/16/24 History Score 4-6) lisinopril 20 1 tab PO DAILY 05/16/24 05/16/24 History mg-hydrochlorothiazide 12.5 mg tablet metformin 500 mg tablet 500 mg PO DAILY 05/16/24 05/16/24 History ondansetron 8 mg disintegrating 8 mg PO Q8H PRN Nausea 05/16/24 05/16/24 History tablet prochlorperazine maleate 10 mg 10 mg PO Q6H PRN Nausea 05/16/24 05/16/24 History tablet (Compazine) Allergies Allergy/AdvReac Type Severity Reaction Status Date / Time No Known Drug Allergies Allergy Verified 02/29/24 10:56 Review of Systems Constitutional Comments: fever, chills, fatigue Cardiovascular Comments: w/o chest pain or palpitations Respiratory Comments: w/o cough, short of breath sometimes Gastrointestinal Comments: epigastric tenderness Genitourinary Comments: w/o dysuria Exam Vital Signs (past 8 hours): - 05/16/24 20:00 05/16/24 20:49 05/16/24 21:00 Temperature 101.7 F H Pulse Rate 105 H 133 H Respiratory Rate 29 H 45 H Blood Pressure 130/72 191/87 H Pulse Oximetry 97 94 Oxygen Delivery Method Room Air Oxygen Flow Rate 05/16/24 21:31 05/16/24 22:00 05/16/24 22:00 Temperature 103.1 F H Pulse Rate 140 H 110 H Respiratory Rate 33 H 42 H Blood Pressure 112/58 L 99/51 L 99/51 L Pulse Oximetry 96 94 Oxygen Delivery Method Room Air Room Air Oxygen Flow Rate 05/16/24 22:30 05/16/24 23:00 05/16/24 23:11 Temperature 102.5 F H 100.7 F H Pulse Rate 106 H 112 H Respiratory Rate 30 H 18 Blood Pressure 92/53 L 118/58 L Pulse Oximetry 95 97 Oxygen Delivery Method Room Air Room Air Oxygen Flow Rate 0 05/16/24 23:19 05/17/24 01:59 Temperature 100.7 F H 98.3 F Pulse Rate 112 H Respiratory Rate 19 Blood Pressure 118/58 L Pulse Oximetry 97 Oxygen Delivery Method Oxygen Flow Rate 0 Oxygen Delivery Method Room Air Oxygen Flow Rate 0 Const Other: in mild distress, has rigors, at bedside HENMT Other: normocephalic Neck Other: supple Resp Other: CTA, tachypneic Cardio Other: tachycardic, regular GI Other: obese, not distended, mild palpatory tenderness of upper quadrants / epigastrium Skin Other: not jaundiced, w/o rashes Neuro Other: w/o deficits Extrem Other: w/o swelling Psych Other: lucid, depressed mood and affect Objective ECG Impression: Sinus tachycardia Labs 05/16/24 16:53 05/16/24 16:53 Labs: Laboratory Results - last 24 hr 05/16/24 05/16/24 05/16/24 16:28 16:53 18:46 WBC 8.8 RBC 4.61 Hgb 13.7 Hct 39.1 L MCV 84.8 MCH 29.7 MCHC 35.0 RDW 12.7 Plt Count 167 Neut % (Auto) 87.7 H Lymph % (Auto) 6.1 L [place] % (Auto) 6.0 Eos % (Auto) 0.0 L Baso % (Auto) 0.2 Neut # (Auto) 7700 H Lymph # (Auto) 500 L [place] # (Auto) 500 Eos # (Auto) 0 Baso # (Auto) 0 Sodium 128 L Potassium 3.8 Chloride 93 L Carbon Dioxide 24 BUN 35 H Creatinine 1.53 H Estimated GFR 58 L BUN/Creatinine Ratio 22.9 H Glucose 238 H Lactate 2.3 H 1.1 Calcium 9.2 Total Bilirubin 0.9 Conjugated Bilirubin 0.0 Unconjugated Bilirubin 0.6 AST 33 ALT 58 H Alkaline Phosphatase 136 H Total Protein 7.9 Albumin 4.1 Globulin 3.8 Albumin/Globulin Ratio 1.1 Lipase 155 Procalcitonin 21.3 H Urine Color Urine Appearance Urine pH Ur Specific [place] Urine Protein Urine Glucose (UA) Urine Ketones Urine Occult Blood Urine Nitrate Urine Bilirubin Urine Urobilinogen Ur Leukocyte Esterase Urine RBC Urine WBC Ur Squamous Epith Cells Urine Bacteria Urine Mucus Ur Culture Indicated? Vol Urine Centrifuged SARS-CoV-2 (PCR) Negative Influenza A (RT-PCR) Flu a negative Influenza B (RT-PCR) Flu b negative RSV (PCR) Negative 05/16/24 19:20 WBC RBC Hgb Hct MCV MCH MCHC RDW Plt Count Neut % (Auto) Lymph % (Auto) [place] % (Auto) Eos % (Auto) Baso % (Auto) Neut # (Auto) Lymph # (Auto) [place] # (Auto) Eos # (Auto) Baso # (Auto) Sodium Potassium Chloride Carbon Dioxide BUN Creatinine Estimated GFR BUN/Creatinine Ratio Glucose Lactate Calcium Total Bilirubin Conjugated Bilirubin Unconjugated Bilirubin AST ALT Alkaline Phosphatase Total Protein Albumin Globulin Albumin/Globulin Ratio Lipase Procalcitonin Urine Color Yellow Urine Appearance Clear Urine pH 5.5 Ur Specific [place] 1.010 Urine Protein Negative Urine Glucose (UA) Negative Urine Ketones Negative Urine Occult Blood Negative Urine Nitrate Negative Urine Bilirubin Negative Urine Urobilinogen 0.2 Ur Leukocyte Esterase Negative Urine RBC None seen Urine WBC 0-1/hpf Ur Squamous Epith Cells 0-1 /hpf Urine Bacteria Occasional (0-1) Urine Mucus 1+ H Ur Culture Indicated? Cult not indicated Vol Urine Centrifuged 10ml (spun) SARS-CoV-2 (PCR) Influenza A (RT-PCR) Influenza B (RT-PCR) RSV (PCR) Assessment & Plan Assessment and plan (1) Sepsis: Status: Acute (2) Carcinoma of biliary canals: Status: Acute (3) HTN (hypertension): Status: Acute (4) Diabetes: Status: Acute (5) HLD (hyperlipidemia): Status: Acute Assessment & Plan narrative: Sepsis - likely source - biliary with underlying Bismuth 2 stricture - empiric coverage with Cefepime, Vancomycin and Flagyl - IVFs - he might need transfer to ICU - close monitoring of LFTs looking for any rise and obstruction KERRI - IVFs - avoidance of NSAIDs HTN - home Lisinopril / HCTZ on hold NIDDMT2 - home metformin on hold - SS instead, CCD DVT prophylaxis - Lovenox GI prophylaxis - protonix Time-Based Coding :: [TOTAL MINUTES] spent with patient and on the chart (including review of chart, obtaining history, exam, reviewing outside data, placing orders, documenting exam and treatment plan, and counseling patient) on [DATE].
[2024-05-17] MEDS: metroNIDAZOLE 500 MG/100 ML PIGGYBACK 100 MG IV (04:05)
--- NOTE | 2024-05-17 04:13 | PC.NURSE ---
At approx 0300 patient noted to be tachycardic on tele with severe rigors and shortness of breath. BP 84/43 HR 135 SPO2 93% 3L NC RR 35 T (oral) 97.3 GLU 135 Patient placed in trendelenberg. MD contacted, appeared on screen to assess. EKG obtained, Sinus rhythm 125 BPM. Patient placed on 4L oximask. MD ordered stool culture, CBC, CMP, lactate, flagyl, 1L LR bolus. 03:30 BP 130/86 HR 120 SPO2 99% RA RR 22 T (oral) 101.1 MD ordered 1 g tylenol IV. Labs obtained. 04:00 BP 112/73 HR 127 SPO2 96% RA RR 18 T (oral) 103.2 Ice pack placed back of neck. 04:30 BP 98/61 (73) HR 125 SPO2 91 RA RR 20 T (temporal) 101.6 IV Bolus, vancomycin, tylenol complete. Flagyl running. Critical Lactate 4.8, notified MD Lloyd. Awaiting orders.
[2024-05-17 04:25] LABS: Add Manual Diff / Slide Review NO; Alanine Aminotransferase 61 IU/L (<50); Albumin 3.6 g/dL (3.5-5.0); Albumin Globulin Ratio 1.1 (1.0-2.8); Alkaline Phosphatase 129 U/L (38-126); Aspartate Aminotransferase 38 IU/L (17-59); BUN Creatinine Ratio 22.6 (6-22); Basophils Absolute Auto 0 /uL (0-100); Basophils Percent Auto 0.3 % (0-2); Bilirubin Total 0.9 mg/dL (0.2-1.3); Blood Urea Nitrogen 28 mg/dL (9-20); Calcium 8.1 mg/dL (8.4-10.2); Carbon Dioxide 18 mmol/L (22-32); Chloride 103 mmol/L (98-107); Eosinophils Absolute Auto 0 /uL (0-450); Eosinophils Percent Auto 0.3 % (2-4); Estimated Glomerular Filt Rate > 60 mL/min (>60); Globulin 3.3 g/dL (1.7-4.1); Glucose 144 mg/dL (70-100); HEMOLYSIS < 15 (0-50); Hemoglobin 15.6 g/dL (13.5-17.5); Lymphocytes Absolute Auto 400 /uL (1100-4500); Lymphocytes Percent Auto 7.5 % (25-40); Mean Corpuscular HGB Conc 33.8 % (30-36); Mean Corpuscular Hemoglobin 28.8 PG (26-34); Mean Corpuscular Volume 85.2 fL (80-100); Monocytes Absolute Auto 100 /uL (0-900); Monocytes Percent Auto 2.2 % (3-14); Neutrophils Absolute Auto 5300 /uL (1500-7000); Neutrophils Percent Auto 89.7 % (50-75); Platelet Count 75 X10^3/uL (150-400); Red Cell Distribution Width 12.9 % (11.6-14.8); Sodium 131 mmol/L (137-145); Total Protein 6.9 g/dL (6.3-8.2)
[2024-05-17 04:27] LABS: Lactate (Lactic Acid) 4.8 mmol/L (0.7-2.1)
--- NOTE | 2024-05-17 04:45 | PC.NURSE ---
Pt AOX4, 2L oxymask. Lungs clear. On Telemetry-ST. Denies any pain. N/V. 3 episodes loose stool. Cdiff pending. Lactate 4.8. Notified Dr Lloyd and ordered to transfer to ICU. LR infusing at 150 in L AC PIV. Flagyl infusing in RAC PIV. at bedside. Report given to Noelle SAINI in ICU.
[2024-05-17] MEDS: LACTATED RINGERS 1,000 ML 150 ML IV ×2 (05:17→16:30)
[2024-05-17 05:22] LABS: Clostridium Difficile Tox PCR Negative for C. diff (Negative)
[2024-05-17 05:35] LABS: Reflexed Lactate in 2 Hours Y
[2024-05-17 06:48] LABS: Lactate 2HR (Lactic Acid Rflx) 1.1 mmol/L (0.7-2.1)
[2024-05-17 07:08] LABS: MRSA (Nasal) PCR NOT DETECTED (Not Detect)
[2024-05-17 07:11] LABS: Adenovirus F 40/41 Not Detected (Not Detect); Astrovirus Not Detected (Not Detect); Campylobacter Not Detected (Not Detect); Clostridium difficile toxin AB Not Detected (Not Detect); Cryptosporidium Not Detected (Not Detect); Cyclospora cayetanensis Not Detected (Not Detect); Entamoeba histolytica Not Detected (Not Detect); Enteroaggregative E.coli Not Detected (Not Detect); Enteropathogenic E.coli Not Detected (Not Detect); Enterotoxigenic E.coli It/st Not Detected (Not Detect); Giardia lamblia Not Detected (Not Detect); Norovirus GI/GII Not Detected (Not Detect); Plesiomonsa shigelloides Not Detected (Not Detect); Rotavirus A Not Detected (Not Detect); Salmonella Not Detected (Not Detect); Sapovirus Not Detected (Not Detect); Shiga-like toxin-prod E.coli Not Detected (Not Detect); Shigella/Enteroinvasive E.coli Not Detected (Not Detect); Vibrio Not Detected (Not Detect); Vibrio cholerae Not Detected (Not Detect); Yersinia enterocolitica Not Detected (Not Detect)
[2024-05-17] MEDS: PANTOPRAZOLE 40 MG VIAL 20 MG IV (08:33)
[2024-05-17 09:16] LABS: Acinetobacter calcoa-baumannii Not Detected (Not Detect); Bacteroides fragilis Not Detected (Not Detect); CTX-M Resistance Not Detected (Not Detect); Candida albicans Not Detected (Not Detect); Candida auris Not Detected (Not Detect); Candida glabrata Not Detected (Not Detect); Candida krusei Not Detected (Not Detect); Candida parapsilosis Not Detected (Not Detect); Candida tropicalis Not Detected (Not Detect); Cryptococcus neoformans/gatti Not Detected (Not Detect); Enterobacter cloacae complex Not Detected (Not Detect); Enterobacterales Detected (Not Detect); Enterococcus faecalis Not Detected (Not Detect); Enterococcus faecium Not Detected (Not Detect); Haemophilus influenzae Not Detected (Not Detect); IMP Resistance Not Detected (Not Detect); KPC Resistance Not Detected (Not Detect); Klebsiella aerogenes Not Detected (Not Detect); Listeria monocytogenes Not Detected (Not Detect); NDM Resistance Not Detected (Not Detect); Neisseria meningitidis Not Detected (Not Detect); OXA-48-like Resistance Not Detected (Not Detect); Proteus species Not Detected (Not Detect); Pseudomonas aeruginosa Not Detected (Not Detect); Salmonella species Not Detected (Not Detect); Serratia marcescens Not Detected (Not Detect); Staphylococcus epidermidis Not Detected (Not Detect); Staphylococcus lugdunensis Not Detected (Not Detect); Staphylococcus species Not Detected (Not Detect); Stenotrophomonas maltophilia Not Detected (Not Detect); Streptococcus agalactiae (Gr B Not Detected (Not Detect); Streptococcus pneumonia Not Detected (Not Detect); Streptococcus pyogenes (Gr A) Not Detected (Not Detect); Streptococcus species Not Detected (Not Detect); VIM Resistance Not Detected (Not Detect); mcr-1 Resistance Not Detected (Not Detect)
[2024-05-17] MEDS: CEFEPIME 2 GM in SODIUM CHLORIDE 0.9% 100 ML IV ×2 (09:50→21:02)
--- NOTE | 2024-05-17 14:01 | PM.CN.EICU ---
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 He has imrpoved since transfer to the ICU, currently on RA with adequate MAP on cefepime. [facility] Medical History (Updated 05/17/24 @ 14:04 by Kevin Ch MD) HLD (hyperlipidemia) Diabetes HTN (hypertension) Social History household members: spouse Smoking Status: Current some day smoker alcohol intake: former Current Medications Current Medications Medications: Home Medications allopurinol 100 mg tablet 100 mg PO BID PRN Gout 05/16/24 [History Confirmed 05/16/24] atorvastatin 40 mg tablet 40 mg PO DAILY 05/16/24 [History Confirmed 05/16/24] colchicine 0.6 mg tablet 0.6 mg PO DAILY PRN Gout 05/16/24 [History Confirmed 05/16/24] empagliflozin 25 mg tablet (Jardiance) 12.5 mg PO DAILY 05/16/24 [History Confirmed 05/16/24] ibuprofen 800 mg tablet 800 mg PO Q6H PRN Pain (Scale Score 4-6) 05/16/24 [History Confirmed 05/16/24] lisinopril 20 mg-hydrochlorothiazide 12.5 mg tablet 1 tab PO DAILY 05/16/24 [History Confirmed 05/16/24] metformin 500 mg tablet 500 mg PO DAILY 05/16/24 [History Confirmed 05/16/24] ondansetron 8 mg disintegrating tablet 8 mg PO Q8H PRN Nausea 05/16/24 [History Confirmed 05/16/24] prochlorperazine maleate 10 mg tablet (Compazine) 10 mg PO Q6H PRN Nausea 05/16/24 [History Confirmed 05/16/24] Visit Medications (administered) Generic Name Dose Route Start Last Admin Trade Name Freq PRN Reason Stop Dose Admin Cefepime HCl 2 gm/ Sodium 100 mls @ 200 mls/hr 05/17/24 09:45 05/17/24 09:50 Chloride IV 200 mls/hr Q12H MAGALY Administration Acetaminophen 1,000 mg in 100 mls @ 400 mls/hr 05/17/24 03:31 05/17/24 03:52 Ofirmev IV Infused Q6H PRN Infusion Fever/Mild Pain (1-3) Lactated Ringer's 1,000 mls @ 150 mls/hr 05/17/24 04:45 05/17/24 05:17 Lactated Ringers IV 06/16/24 11:24 150 mls/hr CONT MAGALY Administration Pantoprazole Sodium 20 mg 05/17/24 09:00 05/17/24 08:33 Pantoprazole 40 Mg Vial IV 20 mg DAILY MAGALY Administration Exam Vital Signs (past 8 hours): - 05/17/24 06:15 05/17/24 06:15 05/17/24 06:20 Temperature Pulse Rate 104 H Respiratory Rate 32 H Blood Pressure 91/50 L 91/50 L Pulse Oximetry 99 Oxygen Delivery Method 05/17/24 06:30 05/17/24 06:30 05/17/24 07:00 Temperature Pulse Rate 102 H 99 H Respiratory Rate 31 H 26 H Blood Pressure 93/50 L 93/57 L Pulse Oximetry 99 99 Oxygen Delivery Method 05/17/24 07:00 05/17/24 07:00 05/17/24 07:30 Temperature Pulse Rate 99 H Respiratory Rate 29 H Blood Pressure 93/57 L Pulse Oximetry 100 Oxygen Delivery Method Oximask 05/17/24 07:30 05/17/24 08:00 05/17/24 08:00 Temperature 98.4 F Pulse Rate 96 H Respiratory Rate 26 H Blood Pressure 96/59 L Pulse Oximetry 94 Oxygen Delivery Method 05/17/24 08:00 05/17/24 08:30 05/17/24 08:30 Temperature Pulse Rate 95 H Respiratory Rate 24 Blood Pressure 106/60 97/65 Pulse Oximetry 98 Oxygen Delivery Method 05/17/24 09:00 05/17/24 09:00 05/17/24 09:30 Temperature Pulse Rate 94 H 93 H Respiratory Rate 26 H 24 Blood Pressure 110/59 L Pulse Oximetry 96 98 Oxygen Delivery Method 05/17/24 09:30 05/17/24 10:04 05/17/24 10:06 Temperature Pulse Rate 92 H 92 H Respiratory Rate 31 H 32 H Blood Pressure 102/68 Pulse Oximetry 99 100 Oxygen Delivery Method 05/17/24 10:06 05/17/24 10:30 05/17/24 11:00 Temperature Pulse Rate 95 H 93 H Respiratory Rate 26 H 23 Blood Pressure 98/65 Pulse Oximetry 97 98 Oxygen Delivery Method 05/17/24 11:30 05/17/24 12:00 05/17/24 12:00 Temperature 98.1 F Pulse Rate 92 H 91 H Respiratory Rate 27 H 25 H Blood Pressure Pulse Oximetry 98 98 Oxygen Delivery Method 05/17/24 12:30 05/17/24 13:00 05/17/24 13:30 Temperature Pulse Rate 98 H 94 H 96 H Respiratory Rate 27 H 24 27 H Blood Pressure Pulse Oximetry Oxygen Delivery Method 05/17/24 13:46 05/17/24 13:46 Temperature Pulse Rate 93 H Respiratory Rate 32 H Blood Pressure 113/75 Pulse Oximetry 99 Oxygen Delivery Method Oxygen Delivery Method Oximask Oxygen Flow Rate 0 Narrative Exam Narrative: awake NAD rate controlled symmetric chest rise Objective Labs 05/17/24 03:51 05/17/24 03:51 Labs: Laboratory Results - last 24 hr 05/16/24 05/16/24 05/16/24 16:28 16:32 16:53 WBC 8.8 RBC 4.61 Hgb 13.7 Hct 39.1 L MCV 84.8 MCH 29.7 MCHC 35.0 RDW 12.7 Plt Count 167 Neut % (Auto) 87.7 H Lymph % (Auto) 6.1 L [place] % (Auto) 6.0 Eos % (Auto) 0.0 L Baso % (Auto) 0.2 Neut # (Auto) 7700 H Lymph # (Auto) 500 L [place] # (Auto) 500 Eos # (Auto) 0 Baso # (Auto) 0 Sodium 128 L Potassium 3.8 Chloride 93 L Carbon Dioxide 24 BUN 35 H Creatinine 1.53 H Estimated GFR 58 L BUN/Creatinine Ratio 22.9 H Glucose 238 H Lactate 2.3 H Calcium 9.2 Total Bilirubin 0.9 Conjugated Bilirubin 0.0 Unconjugated Bilirubin 0.6 AST 33 ALT 58 H Alkaline Phosphatase 136 H Total Protein 7.9 Albumin 4.1 Globulin 3.8 Albumin/Globulin Ratio 1.1 Lipase 155 Procalcitonin 21.3 H Urine Color Urine Appearance Urine pH Ur Specific [place] Urine Protein Urine Glucose (UA) Urine Ketones Urine Occult Blood Urine Nitrate Urine Bilirubin Urine Urobilinogen Ur Leukocyte Esterase Urine RBC Urine WBC Ur Squamous Epith Cells Urine Bacteria Urine Mucus Ur Culture Indicated? Vol Urine Centrifuged Nasal Screen MRSA (PCR) Stl C. cayetanensis PCR Stool Rotavirus (PCR) Stool Adenovirus (PCR) Stool Astrovirus (PCR) Stool Cryptosporidium PCR Stl E.coli Shiga Tox PCR St Sh/Enteroin Ecoli PCR Stl Enterotoxigenic E PCR Stool EPEC (PCR) Stl E. histolytica PCR Stool Giardia Lamblia PCR Stool Sapovirus (PCR) Stl P. shigelloides PCR St Y.enterocolitica PCR Stool Vibrio (PCR) Stl Vibrio cholerae PCR Stl Enteroaggr Ecoli PCR Stl Norovirus GI/GII PCR A.calcoaceticus-baumannii cmplx PCR Not detected Bacteroides fragilis Not detected Campylobacter (PCR) Chela albicans (PCR) Not detected Chela auris (PCR) Not detected C. glabrata (PCR) Not detected C. krusei (PCR) Not detected C. parapsilosis (PCR) Not detected C. tropicalis (PCR) Not detected C. difficile Tox (PCR) SARS-CoV-2 (PCR) Negative C. neoform/gattii (PCR) Not detected Enterobacterales (PCR) Detected E. cloacae complex PCR Not detected Enterococc faecalis PCR Not detected Enterococc faecium PCR Not detected E. coli (PCR) Not detected H. influenzae (PCR) Not detected Influenza A (RT-PCR) Flu a negative Influenza B (RT-PCR) Flu b negative Klebsiella aerogenes (PCR) Not detected Klebsiella oxytoca PCR Not detected Klebsiella pneumoniae Detected List. monocytogenes PCR Not detected N. meningitidis (PCR) Not detected Proteus species (PCR) Not detected RSV (PCR) Negative Salmonella (PCR) Salmonella spp. (PCR) Not detected Serratia marcescens PCR Not detected Staphylococcus sp PCR Not detected Staph aureus (PCR) Not detected mecA/C & MREJ Resist Gene Not applicable mecA/C-Methicil Resis Gene Not applicable mcr-1 Colistin Res Gene PCR Not detected Staph epidermidis (PCR) Not detected Staph lugdunensis PCR Not detected S. maltophilia (PCR) Not detected Streptococcus sp PCR Not detected Group A Strep (PCR) Not detected Strep agalactiae (PCR) Not detected Strep pneumoniae (PCR) Not detected P. aeruginosa (PCR) Not detected Aldo/B-Vanco Res Genes Not applicable blaIMP Car res Gene PCR Not detected KPC-Carbap Res Gene PCR Not detected blaNDM Car Res Gene PCR Not detected OXA-48 Carbapenem Resis Gene (PCR) Not detected blaVIM Car Res Gene PCR Not detected CTX-M Gene Resistance (PCR) Not detected 05/16/24 05/16/24 05/17/24 18:46 19:20 03:00 WBC RBC Hgb Hct MCV MCH MCHC RDW Plt Count Neut % (Auto) Lymph % (Auto) [place] % (Auto) Eos % (Auto) Baso % (Auto) Neut # (Auto) Lymph # (Auto) [place] # (Auto) Eos # (Auto) Baso # (Auto) Sodium Potassium Chloride Carbon Dioxide BUN Creatinine Estimated GFR BUN/Creatinine Ratio Glucose Lactate 1.1 Calcium Total Bilirubin Conjugated Bilirubin Unconjugated Bilirubin AST ALT Alkaline Phosphatase Total Protein Albumin Globulin Albumin/Globulin Ratio Lipase Procalcitonin Urine Color Yellow Urine Appearance Clear Urine pH 5.5 Ur Specific [place] 1.010 Urine Protein Negative Urine Glucose (UA) Negative Urine Ketones Negative Urine Occult Blood Negative Urine Nitrate Negative Urine Bilirubin Negative Urine Urobilinogen 0.2 Ur Leukocyte Esterase Negative Urine RBC None seen Urine WBC 0-1/hpf Ur Squamous Epith Cells 0-1 /hpf Urine Bacteria Occasional (0-1) Urine Mucus 1+ H Ur Culture Indicated? Cult not indicated Vol Urine Centrifuged 10ml (spun) Nasal Screen MRSA (PCR) Stl C. cayetanensis PCR Not detected Stool Rotavirus (PCR) Not detected Stool Adenovirus (PCR) Not detected Stool Astrovirus (PCR) Not detected Stool Cryptosporidium PCR Not detected Stl E.coli Shiga Tox PCR Not detected St Sh/Enteroin Ecoli PCR Not detected Stl Enterotoxigenic E PCR Not detected Stool EPEC (PCR) Not detected Stl E. histolytica PCR Not detected Stool Giardia Lamblia PCR Not detected Stool Sapovirus (PCR) Not detected Stl P. shigelloides PCR Not detected St Y.enterocolitica PCR Not detected Stool Vibrio (PCR) Not detected Stl Vibrio cholerae PCR Not detected Stl Enteroaggr Ecoli PCR Not detected Stl Norovirus GI/GII PCR Not detected A.calcoaceticus-baumannii cmplx PCR Bacteroides fragilis Campylobacter (PCR) Not detected Chela albicans (PCR) Chela auris (PCR) C. glabrata (PCR) C. krusei (PCR) C. parapsilosis (PCR) C. tropicalis (PCR) C. difficile Tox (PCR) Negative for c. diff SARS-CoV-2 (PCR) C. neoform/gattii (PCR) Enterobacterales (PCR) E. cloacae complex PCR Enterococc faecalis PCR Enterococc faecium PCR E. coli (PCR) H. influenzae (PCR) Influenza A (RT-PCR) Influenza B (RT-PCR) Klebsiella aerogenes (PCR) Klebsiella oxytoca PCR Klebsiella pneumoniae List. monocytogenes PCR N. meningitidis (PCR) Proteus species (PCR) RSV (PCR) Salmonella (PCR) Salmonella spp. (PCR) Serratia marcescens PCR Staphylococcus sp PCR Staph aureus (PCR) mecA/C & MREJ Resist Gene mecA/C-Methicil Resis Gene mcr-1 Colistin Res Gene PCR Staph epidermidis (PCR) Staph lugdunensis PCR S. maltophilia (PCR) Streptococcus sp PCR Group A Strep (PCR) Strep agalactiae (PCR) Strep pneumoniae (PCR) P. aeruginosa (PCR) Aldo/B-Vanco Res Genes blaIMP Car res Gene PCR KPC-Carbap Res Gene PCR blaNDM Car Res Gene PCR OXA-48 Carbapenem Resis Gene (PCR) blaVIM Car Res Gene PCR CTX-M Gene Resistance (PCR) 05/17/24 05/17/24 05/17/24 03:00 03:51 05:28 WBC 6.0 RBC 5.40 Hgb 15.6 Hct 46.0 MCV 85.2 MCH 28.8 MCHC 33.8 RDW 12.9 Plt Count 75 L Neut % (Auto) 89.7 H Lymph % (Auto) 7.5 L [place] % (Auto) 2.2 L Eos % (Auto) 0.3 L Baso % (Auto) 0.3 Neut # (Auto) 5300 Lymph # (Auto) 400 L [place] # (Auto) 100 Eos # (Auto) 0 Baso # (Auto) 0 Sodium 131 L Potassium 4.0 Chloride 103 Carbon Dioxide 18 L BUN 28 H Creatinine 1.24 Estimated GFR > 60 BUN/Creatinine Ratio 22.6 H Glucose 144 H Lactate 4.8 H* Calcium 8.1 L Total Bilirubin 0.9 Conjugated Bilirubin Unconjugated Bilirubin AST 38 ALT 61 H Alkaline Phosphatase 129 H Total Protein 6.9 Albumin 3.6 Globulin 3.3 Albumin/Globulin Ratio 1.1 Lipase Procalcitonin Urine Color Urine Appearance Urine pH Ur Specific [place] Urine Protein Urine Glucose (UA) Urine Ketones Urine Occult Blood Urine Nitrate Urine Bilirubin Urine Urobilinogen Ur Leukocyte Esterase Urine RBC Urine WBC Ur Squamous Epith Cells Urine Bacteria Urine Mucus Ur Culture Indicated? Vol Urine Centrifuged Nasal Screen MRSA (PCR) Not detected Stl C. cayetanensis PCR Stool Rotavirus (PCR) Stool Adenovirus (PCR) Stool Astrovirus (PCR) Stool Cryptosporidium PCR Stl E.coli Shiga Tox PCR St Sh/Enteroin Ecoli PCR Stl Enterotoxigenic E PCR Stool EPEC (PCR) Stl E. histolytica PCR Stool Giardia Lamblia PCR Stool Sapovirus (PCR) Stl P. shigelloides PCR St Y.enterocolitica PCR Stool Vibrio (PCR) Stl Vibrio cholerae PCR Stl Enteroaggr Ecoli PCR Stl Norovirus GI/GII PCR A.calcoaceticus-baumannii cmplx PCR Bacteroides fragilis Campylobacter (PCR) [place] albicans (PCR) Chela auris (PCR) C. glabrata (PCR) C. krusei (PCR) C. parapsilosis (PCR) C. tropicalis (PCR) C. difficile Tox (PCR) Not detected SARS-CoV-2 (PCR) C. neoform/gattii (PCR) Enterobacterales (PCR) E. cloacae complex PCR Enterococc faecalis PCR Enterococc faecium PCR E. coli (PCR) H. influenzae (PCR) Influenza A (RT-PCR) Influenza B (RT-PCR) Klebsiella aerogenes (PCR) Klebsiella oxytoca PCR Klebsiella pneumoniae List. monocytogenes PCR N. meningitidis (PCR) Proteus species (PCR) RSV (PCR) Salmonella (PCR) Not detected Salmonella spp. (PCR) Serratia marcescens PCR Staphylococcus sp PCR Staph aureus (PCR) mecA/C & MREJ Resist Gene mecA/C-Methicil Resis Gene mcr-1 Colistin Res Gene PCR Staph epidermidis (PCR) Staph lugdunensis PCR S. maltophilia (PCR) Streptococcus sp PCR Group A Strep (PCR) Strep agalactiae (PCR) Strep pneumoniae (PCR) P. aeruginosa (PCR) Aldo/B-Vanco Res Genes blaIMP Car res Gene PCR KPC-Carbap Res Gene PCR blaNDM Car Res Gene PCR OXA-48 Carbapenem Resis Gene (PCR) blaVIM Car Res Gene PCR CTX-M Gene Resistance (PCR) 05/17/24 06:18 WBC RBC Hgb Hct MCV MCH MCHC RDW Plt Count Neut % (Auto) Lymph % (Auto) [place] % (Auto) Eos % (Auto) Baso % (Auto) Neut # (Auto) Lymph # (Auto) [place] # (Auto) Eos # (Auto) Baso # (Auto) Sodium Potassium Chloride Carbon Dioxide BUN Creatinine Estimated GFR BUN/Creatinine Ratio Glucose Lactate 1.1 Calcium Total Bilirubin Conjugated Bilirubin Unconjugated Bilirubin AST ALT Alkaline Phosphatase Total Protein Albumin Globulin Albumin/Globulin Ratio Lipase Procalcitonin Urine Color Urine Appearance Urine pH Ur Specific [place] Urine Protein Urine Glucose (UA) Urine Ketones Urine Occult Blood Urine Nitrate Urine Bilirubin Urine Urobilinogen Ur Leukocyte Esterase Urine RBC Urine WBC Ur Squamous Epith Cells Urine Bacteria Urine Mucus Ur Culture Indicated? Vol Urine Centrifuged Nasal Screen MRSA (PCR) Stl C. cayetanensis PCR Stool Rotavirus (PCR) Stool Adenovirus (PCR) Stool Astrovirus (PCR) Stool Cryptosporidium PCR Stl E.coli Shiga Tox PCR St Sh/Enteroin Ecoli PCR Stl Enterotoxigenic E PCR Stool EPEC (PCR) Stl E. histolytica PCR Stool Giardia Lamblia PCR Stool Sapovirus (PCR) Stl P. shigelloides PCR St Y.enterocolitica PCR Stool Vibrio (PCR) Stl Vibrio cholerae PCR Stl Enteroaggr Ecoli PCR Stl Norovirus GI/GII PCR A.calcoaceticus-baumannii cmplx PCR Bacteroides fragilis Campylobacter (PCR) Chela albicans (PCR) Chela auris (PCR) C. glabrata (PCR) C. krusei (PCR) C. parapsilosis (PCR) C. tropicalis (PCR) C. difficile Tox (PCR) SARS-CoV-2 (PCR) C. neoform/gattii (PCR) Enterobacterales (PCR) E. cloacae complex PCR Enterococc faecalis PCR Enterococc faecium PCR E. coli (PCR) H. influenzae (PCR) Influenza A (RT-PCR) Influenza B (RT-PCR) Klebsiella aerogenes (PCR) Klebsiella oxytoca PCR Klebsiella pneumoniae List. monocytogenes PCR N. meningitidis (PCR) Proteus species (PCR) RSV (PCR) Salmonella (PCR) Salmonella spp. (PCR) Serratia marcescens PCR Staphylococcus sp PCR Staph aureus (PCR) mecA/C & MREJ Resist Gene mecA/C-Methicil Resis Gene mcr-1 Colistin Res Gene PCR Staph epidermidis (PCR) Staph lugdunensis PCR S. maltophilia (PCR) Streptococcus sp PCR Group A Strep (PCR) Strep agalactiae (PCR) Strep pneumoniae (PCR) P. 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
--- NOTE | 2024-05-17 15:17 | PM.HP.1 ---
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 Since yesterday he had constant chills and low grade fever. On admission hypotensive, tachycardic, febrile. Initial workup with unremarkable CXR and UA. Complains on epigastric tenderness. He had several loose stools in the few hours of admission. Admitted with sepsis, likely GI origin with underlying stricture. [facility]LY [facility] Medical History (Updated 05/17/24 @ 14:04 by Kevin Ch MD) HLD (hyperlipidemia) Diabetes HTN (hypertension) Social History household members: spouse Smoking Status: Current some day smoker alcohol intake: former Meds Home Medications and Allergies Home Medications Medication Instructions Recorded Confirmed Type allopurinol 100 mg tablet 100 mg PO BID PRN Gout 05/16/24 05/16/24 History atorvastatin 40 mg tablet 40 mg PO DAILY 05/16/24 05/16/24 History colchicine 0.6 mg tablet 0.6 mg PO DAILY PRN Gout 05/16/24 05/16/24 History empagliflozin 25 mg tablet 12.5 mg PO DAILY 05/16/24 05/16/24 History (Jardiance) ibuprofen 800 mg tablet 800 mg PO Q6H PRN Pain (Scale 05/16/24 05/16/24 History Score 4-6) lisinopril 20 1 tab PO DAILY 05/16/24 05/16/24 History mg-hydrochlorothiazide 12.5 mg tablet metformin 500 mg tablet 500 mg PO DAILY 05/16/24 05/16/24 History ondansetron 8 mg disintegrating 8 mg PO Q8H PRN Nausea 05/16/24 05/16/24 History tablet prochlorperazine maleate 10 mg 10 mg PO Q6H PRN Nausea 05/16/24 05/16/24 History tablet (Compazine) Allergies Allergy/AdvReac Type Severity Reaction Status Date / Time No Known Drug Allergies Allergy Verified 02/29/24 10:56 Review of Systems Review of Systems ROS: Yes All systems reviewed with the patient and are negative except as otherwise documented Exam Vital Signs (past 8 hours): - 05/17/24 07:30 05/17/24 07:30 05/17/24 08:00 Temperature 98.4 F Pulse Rate 99 H Respiratory Rate 29 H Blood Pressure 96/59 L Pulse Oximetry 100 05/17/24 08:00 05/17/24 08:00 05/17/24 08:30 Temperature Pulse Rate 96 H 95 H Respiratory Rate 26 H 24 Blood Pressure 106/60 Pulse Oximetry 94 98 05/17/24 08:30 05/17/24 09:00 05/17/24 09:00 Temperature Pulse Rate 94 H Respiratory Rate 26 H Blood Pressure 97/65 110/59 L Pulse Oximetry 96 05/17/24 09:30 05/17/24 09:30 05/17/24 10:04 Temperature Pulse Rate 93 H 92 H Respiratory Rate 24 31 H Blood Pressure 102/68 Pulse Oximetry 98 99 05/17/24 10:06 05/17/24 10:06 05/17/24 10:30 Temperature Pulse Rate 92 H 95 H Respiratory Rate 32 H 26 H Blood Pressure 98/65 Pulse Oximetry 100 97 05/17/24 11:00 05/17/24 11:30 05/17/24 12:00 Temperature 98.1 F Pulse Rate 93 H 92 H Respiratory Rate 23 27 H Blood Pressure Pulse Oximetry 98 98 05/17/24 12:00 05/17/24 12:30 05/17/24 13:00 Temperature Pulse Rate 91 H 98 H 94 H Respiratory Rate 25 H 27 H 24 Blood Pressure Pulse Oximetry 98 05/17/24 13:30 05/17/24 13:46 05/17/24 13:46 Temperature Pulse Rate 96 H 93 H Respiratory Rate 27 H 32 H Blood Pressure 113/75 Pulse Oximetry 99 05/17/24 15:00 Temperature Pulse Rate 97 H Respiratory Rate 24 Blood Pressure 110/72 Pulse Oximetry 96 Oxygen Delivery Method Oximask Oxygen Flow Rate 0 Narrative Exam Narrative: HENMT Other: normocephalic Neck Other: supple Resp Other: CTA, tachypneic Cardio Other: tachycardic, regular GI Other: obese, not distended, mild palpatory tenderness of upper quadrants / epigastrium Skin Other: not jaundiced, w/o rashes Neuro Other: w/o deficits Extrem Other: w/o swelling Psych Other: lucid, depressed mood and affect Objective Labs 05/17/24 03:51 05/17/24 03:51 Labs: Laboratory Results - last 24 hr 05/16/24 05/16/24 05/16/24 16:28 16:32 16:53 WBC 8.8 RBC 4.61 Hgb 13.7 Hct 39.1 L MCV 84.8 MCH 29.7 MCHC 35.0 RDW 12.7 Plt Count 167 Neut % (Auto) 87.7 H Lymph % (Auto) 6.1 L Emery % (Auto) 6.0 Eos % (Auto) 0.0 L Baso % (Auto) 0.2 Neut # (Auto) 7700 H Lymph # (Auto) 500 L Emery # (Auto) 500 Eos # (Auto) 0 Baso # (Auto) 0 Sodium 128 L Potassium 3.8 Chloride 93 L Carbon Dioxide 24 BUN 35 H Creatinine 1.53 H Estimated GFR 58 L BUN/Creatinine Ratio 22.9 H Glucose 238 H Lactate 2.3 H Calcium 9.2 Total Bilirubin 0.9 Conjugated Bilirubin 0.0 Unconjugated Bilirubin 0.6 AST 33 ALT 58 H Alkaline Phosphatase 136 H Total Protein 7.9 Albumin 4.1 Globulin 3.8 Albumin/Globulin Ratio 1.1 Lipase 155 Procalcitonin 21.3 H Urine Color Urine Appearance Urine pH Ur Specific [place] Urine Protein Urine Glucose (UA) Urine Ketones Urine Occult Blood Urine Nitrate Urine Bilirubin Urine Urobilinogen Ur Leukocyte Esterase Urine RBC Urine WBC Ur Squamous Epith Cells Urine Bacteria Urine Mucus Ur Culture Indicated? Vol Urine Centrifuged Nasal Screen MRSA (PCR) Stl C. cayetanensis PCR Stool Rotavirus (PCR) Stool Adenovirus (PCR) Stool Astrovirus (PCR) Stool Cryptosporidium PCR Stl E.coli Shiga Tox PCR St Sh/Enteroin Ecoli PCR Stl Enterotoxigenic E PCR Stool EPEC (PCR) Stl E. histolytica PCR Stool Giardia Lamblia PCR Stool Sapovirus (PCR) Stl P. shigelloides PCR St Y.enterocolitica PCR Stool Vibrio (PCR) Stl Vibrio cholerae PCR Stl Enteroaggr Ecoli PCR Stl Norovirus GI/GII PCR A.calcoaceticus-baumannii cmplx PCR Not detected Bacteroides fragilis Not detected Campylobacter (PCR) Chela albicans (PCR) Not detected Chela auris (PCR) Not detected C. glabrata (PCR) Not detected C. krusei (PCR) Not detected C. parapsilosis (PCR) Not detected C. tropicalis (PCR) Not detected C. difficile Tox (PCR) SARS-CoV-2 (PCR) Negative C. neoform/gattii (PCR) Not detected Enterobacterales (PCR) Detected E. cloacae complex PCR Not detected Enterococc faecalis PCR Not detected Enterococc faecium PCR Not detected E. coli (PCR) Not detected H. influenzae (PCR) Not detected Influenza A (RT-PCR) Flu a negative Influenza B (RT-PCR) Flu b negative Klebsiella aerogenes (PCR) Not detected Klebsiella oxytoca PCR Not detected Klebsiella pneumoniae Detected List. monocytogenes PCR Not detected N. meningitidis (PCR) Not detected Proteus species (PCR) Not detected RSV (PCR) Negative Salmonella (PCR) Salmonella spp. (PCR) Not detected Serratia marcescens PCR Not detected Staphylococcus sp PCR Not detected Staph aureus (PCR) Not detected mecA/C & MREJ Resist Gene Not applicable mecA/C-Methicil Resis Gene Not applicable mcr-1 Colistin Res Gene PCR Not detected Staph epidermidis (PCR) Not detected Staph lugdunensis PCR Not detected S. maltophilia (PCR) Not detected Streptococcus sp PCR Not detected Group A Strep (PCR) Not detected Strep agalactiae (PCR) Not detected Strep pneumoniae (PCR) Not detected P. aeruginosa (PCR) Not detected Aldo/B-Vanco Res Genes Not applicable blaIMP Car res Gene PCR Not detected KPC-Carbap Res Gene PCR Not detected blaNDM Car Res Gene PCR Not detected OXA-48 Carbapenem Resis Gene (PCR) Not detected blaVIM Car Res Gene PCR Not detected CTX-M Gene Resistance (PCR) Not detected 05/16/24 05/16/24 05/17/24 18:46 19:20 03:00 WBC RBC Hgb Hct MCV MCH MCHC RDW Plt Count Neut % (Auto) Lymph % (Auto) Emery % (Auto) Eos % (Auto) Baso % (Auto) Neut # (Auto) Lymph # (Auto) Emery # (Auto) Eos # (Auto) Baso # (Auto) Sodium Potassium Chloride Carbon Dioxide BUN Creatinine Estimated GFR BUN/Creatinine Ratio Glucose Lactate 1.1 Calcium Total Bilirubin Conjugated Bilirubin Unconjugated Bilirubin AST ALT Alkaline Phosphatase Total Protein Albumin Globulin Albumin/Globulin Ratio Lipase Procalcitonin Urine Color Yellow Urine Appearance Clear Urine pH 5.5 Ur Specific [place] 1.010 Urine Protein Negative Urine Glucose (UA) Negative Urine Ketones Negative Urine Occult Blood Negative Urine Nitrate Negative Urine Bilirubin Negative Urine Urobilinogen 0.2 Ur Leukocyte Esterase Negative Urine RBC None seen Urine WBC 0-1/hpf Ur Squamous Epith Cells 0-1 /hpf Urine Bacteria Occasional (0-1) Urine Mucus 1+ H Ur Culture Indicated? Cult not indicated Vol Urine Centrifuged 10ml (spun) Nasal Screen MRSA (PCR) Stl C. cayetanensis PCR Not detected Stool Rotavirus (PCR) Not detected Stool Adenovirus (PCR) Not detected Stool Astrovirus (PCR) Not detected Stool Cryptosporidium PCR Not detected Stl E.coli Shiga Tox PCR Not detected St Sh/Enteroin Ecoli PCR Not detected Stl Enterotoxigenic E PCR Not detected Stool EPEC (PCR) Not detected Stl E. histolytica PCR Not detected Stool Giardia Lamblia PCR Not detected Stool Sapovirus (PCR) Not detected Stl P. shigelloides PCR Not detected St Y.enterocolitica PCR Not detected Stool Vibrio (PCR) Not detected Stl Vibrio cholerae PCR Not detected Stl Enteroaggr Ecoli PCR Not detected Stl Norovirus GI/GII PCR Not detected A.calcoaceticus-baumannii cmplx PCR Bacteroides fragilis Campylobacter (PCR) Not detected Chela albicans (PCR) Chela auris (PCR) C. glabrata (PCR) C. krusei (PCR) C. parapsilosis (PCR) C. tropicalis (PCR) C. difficile Tox (PCR) Negative for c. diff SARS-CoV-2 (PCR) C. neoform/gattii (PCR) Enterobacterales (PCR) E. cloacae complex PCR Enterococc faecalis PCR Enterococc faecium PCR E. coli (PCR) H. influenzae (PCR) Influenza A (RT-PCR) Influenza B (RT-PCR) Klebsiella aerogenes (PCR) Klebsiella oxytoca PCR Klebsiella pneumoniae List. monocytogenes PCR N. meningitidis (PCR) Proteus species (PCR) RSV (PCR) Salmonella (PCR) Salmonella spp. (PCR) Serratia marcescens PCR Staphylococcus sp PCR Staph aureus (PCR) mecA/C & MREJ Resist Gene mecA/C-Methicil Resis Gene mcr-1 Colistin Res Gene PCR Staph epidermidis (PCR) Staph lugdunensis PCR S. maltophilia (PCR) Streptococcus sp PCR Group A Strep (PCR) Strep agalactiae (PCR) Strep pneumoniae (PCR) P. aeruginosa (PCR) Aldo/B-Vanco Res Genes blaIMP Car res Gene PCR KPC-Carbap Res Gene PCR blaNDM Car Res Gene PCR OXA-48 Carbapenem Resis Gene (PCR) blaVIM Car Res Gene PCR CTX-M Gene Resistance (PCR) 05/17/24 05/17/24 05/17/24 03:00 03:51 05:28 WBC 6.0 RBC 5.40 Hgb 15.6 Hct 46.0 MCV 85.2 MCH 28.8 MCHC 33.8 RDW 12.9 Plt Count 75 L Neut % (Auto) 89.7 H Lymph % (Auto) 7.5 L Emery % (Auto) 2.2 L Eos % (Auto) 0.3 L Baso % (Auto) 0.3 Neut # (Auto) 5300 Lymph # (Auto) 400 L Emery # (Auto) 100 Eos # (Auto) 0 Baso # (Auto) 0 Sodium 131 L Potassium 4.0 Chloride 103 Carbon Dioxide 18 L BUN 28 H Creatinine 1.24 Estimated GFR > 60 BUN/Creatinine Ratio 22.6 H Glucose 144 H Lactate 4.8 H* Calcium 8.1 L Total Bilirubin 0.9 Conjugated Bilirubin Unconjugated Bilirubin AST 38 ALT 61 H Alkaline Phosphatase 129 H Total Protein 6.9 Albumin 3.6 Globulin 3.3 Albumin/Globulin Ratio 1.1 Lipase Procalcitonin Urine Color Urine Appearance Urine pH Ur Specific [place] Urine Protein Urine Glucose (UA) Urine Ketones Urine Occult Blood Urine Nitrate Urine Bilirubin Urine Urobilinogen Ur Leukocyte Esterase Urine RBC Urine WBC Ur Squamous Epith Cells Urine Bacteria Urine Mucus Ur Culture Indicated? Vol Urine Centrifuged Nasal Screen MRSA (PCR) Not detected Stl C. cayetanensis PCR Stool Rotavirus (PCR) Stool Adenovirus (PCR) Stool Astrovirus (PCR) Stool Cryptosporidium PCR Stl E.coli Shiga Tox PCR St Sh/Enteroin Ecoli PCR Stl Enterotoxigenic E PCR Stool EPEC (PCR) Stl E. histolytica PCR Stool Giardia Lamblia PCR Stool Sapovirus (PCR) Stl P. shigelloides PCR St Y.enterocolitica PCR Stool Vibrio (PCR) Stl Vibrio cholerae PCR Stl Enteroaggr Ecoli PCR Stl Norovirus GI/GII PCR A.calcoaceticus-baumannii cmplx PCR Bacteroides fragilis Campylobacter (PCR) Chela albicans (PCR) Chela auris (PCR) C. glabrata (PCR) C. krusei (PCR) C. parapsilosis (PCR) C. tropicalis (PCR) C. difficile Tox (PCR) Not detected SARS-CoV-2 (PCR) C. neoform/gattii (PCR) Enterobacterales (PCR) E. cloacae complex PCR Enterococc faecalis PCR Enterococc faecium PCR E. coli (PCR) H. influenzae (PCR) Influenza A (RT-PCR) Influenza B (RT-PCR) Klebsiella aerogenes (PCR) Klebsiella oxytoca PCR Klebsiella pneumoniae List. monocytogenes PCR N. meningitidis (PCR) Proteus species (PCR) RSV (PCR) Salmonella (PCR) Not detected Salmonella spp. (PCR) Serratia marcescens PCR Staphylococcus sp PCR Staph aureus (PCR) mecA/C & MREJ Resist Gene mecA/C-Methicil Resis Gene mcr-1 Colistin Res Gene PCR Staph epidermidis (PCR) Staph lugdunensis PCR S. maltophilia (PCR) Streptococcus sp PCR Group A Strep (PCR) Strep agalactiae (PCR) Strep pneumoniae (PCR) P. aeruginosa (PCR) Aldo/B-Vanco Res Genes blaIMP Car res Gene PCR KPC-Carbap Res Gene PCR blaNDM Car Res Gene PCR OXA-48 Carbapenem Resis Gene (PCR) blaVIM Car Res Gene PCR CTX-M Gene Resistance (PCR) 05/17/24 06:18 WBC RBC Hgb Hct MCV MCH MCHC RDW Plt Count Neut % (Auto) Lymph % (Auto) Emery % (Auto) Eos % (Auto) Baso % (Auto) Neut # (Auto) Lymph # (Auto) Emery # (Auto) Eos # (Auto) Baso # (Auto) Sodium Potassium Chloride Carbon Dioxide BUN Creatinine Estimated GFR BUN/Creatinine Ratio Glucose Lactate 1.1 Calcium Total Bilirubin Conjugated Bilirubin Unconjugated Bilirubin AST ALT Alkaline Phosphatase Total Protein Albumin Globulin Albumin/Globulin Ratio Lipase Procalcitonin Urine Color Urine Appearance Urine pH Ur Specific [place] Urine Protein Urine Glucose (UA) Urine Ketones Urine Occult Blood Urine Nitrate Urine Bilirubin Urine Urobilinogen Ur Leukocyte Esterase Urine RBC Urine WBC Ur Squamous Epith Cells Urine Bacteria Urine Mucus Ur Culture Indicated? Vol Urine Centrifuged Nasal Screen MRSA (PCR) Stl C. cayetanensis PCR Stool Rotavirus (PCR) Stool Adenovirus (PCR) Stool Astrovirus (PCR) Stool Cryptosporidium PCR Stl E.coli Shiga Tox PCR St Sh/Enteroin Ecoli PCR Stl Enterotoxigenic E PCR Stool EPEC (PCR) Stl E. histolytica PCR Stool Giardia Lamblia PCR Stool Sapovirus (PCR) Stl P. shigelloides PCR St Y.enterocolitica PCR Stool Vibrio (PCR) Stl Vibrio cholerae PCR Stl Enteroaggr Ecoli PCR Stl Norovirus GI/GII PCR A.calcoaceticus-baumannii cmplx PCR Bacteroides fragilis Campylobacter (PCR) Chela albicans (PCR) Chela auris (PCR) C. glabrata (PCR) C. krusei (PCR) C. parapsilosis (PCR) C. tropicalis (PCR) C. difficile Tox (PCR) SARS-CoV-2 (PCR) C. neoform/gattii (PCR) Enterobacterales (PCR) E. cloacae complex PCR Enterococc faecalis PCR Enterococc faecium PCR E. coli (PCR) H. influenzae (PCR) Influenza A (RT-PCR) Influenza B (RT-PCR) Klebsiella aerogenes (PCR) Klebsiella oxytoca PCR Klebsiella pneumoniae List. monocytogenes PCR N. meningitidis (PCR) Proteus species (PCR) RSV (PCR) Salmonella (PCR) Salmonella spp. (PCR) Serratia marcescens PCR Staphylococcus sp PCR Staph aureus (PCR) mecA/C & MREJ Resist Gene mecA/C-Methicil Resis Gene mcr-1 Colistin Res Gene PCR Staph epidermidis (PCR) Staph lugdunensis PCR S. maltophilia (PCR) Streptococcus sp PCR Group A Strep (PCR) Strep agalactiae (PCR) Strep pneumoniae (PCR) P. aeruginosa (PCR) Aldo/B-Vanco Res Genes blaIMP Car res Gene PCR KPC-Carbap Res Gene PCR blaNDM Car Res Gene PCR OXA-48 Carbapenem Resis Gene (PCR) blaVIM Car Res Gene PCR CTX-M Gene Resistance (PCR) Assessment & Plan Assessment & Plan narrative: (1) Sepsis: Status: Acute (2) Carcinoma of biliary canals: Status: Acute (3) HTN (hypertension): Status: Acute (4) Diabetes: Status: Acute (5) HLD (hyperlipidemia): Status: Acute Assessment & Plan narrative: Sepsis - likely source - biliary with underlying Bismuth 2 stricture - empiric coverage with Cefepime, Vancomycin and Flagyl - IVFs - he might need transfer to ICU - close monitoring of LFTs looking for any rise and obstruction KERRI - IVFs - avoidance of NSAIDs HTN - home Lisinopril / HCTZ on hold NIDDMT2 - home metformin on hold - SS instead, CCD DVT prophylaxis - Lovenox GI prophylaxis - protonix Time-Based Coding :: [TOTAL MINUTES] spent with patient and on the chart (including review of chart, obtaining history, exam, reviewing outside data, placing orders, documenting exam and treatment plan, and counseling patient) on [DATE].
--- NOTE | 2024-05-17 15:22 | CM.DANOTE ---
B DCP Assessment note Pt is a 43yo M here with sepsis from bacteremia. Recently had first round of chemo from [facility] 05/11/24 for billiary adenocarcinoma. 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 Per chart, pt lives with spouse in [place]. Per RN, pt fever better controlled today. Has a port. Per RN pt improving with antibiotics. Per provider in morning rounds, pt will likely not need exterminator helper termite IV abx but will be here fora few days. AIRPORT TRAFFIC CONTROLLER did not meet with pt today due to triaging needs. P: no obvious/identified barriers to safe dc home with spouse at this time. CM team will continue to follow closely NATHALY Christianson Discharge Planning/Care Management CM Discharge Assessment Start: 05/17/24 15:18 Freq: Status: Active Protocol: Document 05/17/24 15:18 (Rec: 05/17/24 15:22 [id number]) Discharge Planning Assessment Assigned Civil Engineering Specialist NATHALY Santiago DPOA/Assigned Designee Name michaelle Morrison Contact Information [phone] Advance Directives? No History Provided By Significant Other Prior Living Arrangements House Household Members spouse Type of transporation used prior to Drives own vehicle admit Independent with ADL's Yes Is patient alert and oriented? Yes Discharge Plan Home Transportation Arrangement likely family Referrals Initiated None needed Whiteboard Updated in Patient Room with No name and ext. # of Civil Engineering Specialist Review Status In Process Please Provide Date Initial DC 05/17/24 Assessment Was Performed Next Review Type Continued Stay Review
--- NOTE | 2024-05-17 19:34 | PC.NURSE ---
pt is doing much better; he has been afebrile; HR less than 100; o2 sat 96-99 on room air; ambulatory in room without difficulty
[2024-05-17] MEDS: ATORVASTATIN 20 MG TABLET 40 MG PO (20:35)
[2024-05-18] VITALS (28 sets, daily range): BP systolic 114–133; BP diastolic 71–86; PULSE 88–112; RESP 0–36; TEMP 36.5–36.6; O2SAT 92–98
[2024-05-18 06:16] LABS: Add Manual Diff / Slide Review NO; Basophils Absolute Auto 0 /uL (0-100); Basophils Percent Auto 0.2 % (0-2); Eosinophils Absolute Auto 100 /uL (0-450); Eosinophils Percent Auto 0.7 % (2-4); Hematocrit 34.6 % (41-53); Hemoglobin 11.9 g/dL (13.5-17.5); Lymphocytes Absolute Auto 1500 /uL (1100-4500); Lymphocytes Percent Auto 14.5 % (25-40); Mean Corpuscular HGB Conc 34.4 % (30-36); Mean Corpuscular Volume 84.2 fL (80-100); Monocytes Absolute Auto 1100 /uL (0-900); Monocytes Percent Auto 10.3 % (3-14); Neutrophils Absolute Auto 7700 /uL (1500-7000); Neutrophils Percent Auto 74.3 % (50-75); Platelet Count 80 X10^3/uL (150-400); Red Blood Cell Count 4.11 X10^6/uL (4.5-5.9); White Blood Cell Count 10.4 X10^3/uL (4.5-11.0)
[2024-05-18 06:26] LABS: Alanine Aminotransferase 44 IU/L (<50); Albumin 3.5 g/dL (3.5-5.0); Albumin Globulin Ratio 1.1 (1.0-2.8); Alkaline Phosphatase 123 U/L (38-126); Aspartate Aminotransferase 41 IU/L (17-59); BUN Creatinine Ratio 25.3 (6-22); Bilirubin Total 0.6 mg/dL (0.2-1.3); Blood Urea Nitrogen 20 mg/dL (9-20); Calcium 8.8 mg/dL (8.4-10.2); Carbon Dioxide 22 mmol/L (22-32); Chloride 105 mmol/L (98-107); Estimated Glomerular Filt Rate > 60 mL/min (>60); Globulin 3.2 g/dL (1.7-4.1); Glucose 127 mg/dL (70-100); HEMOLYSIS < 15 (0-50); Potassium 3.5 mmol/L (3.4-5.1); Sodium 135 mmol/L (137-145); Total Protein 6.7 g/dL (6.3-8.2)
--- NOTE | 2024-05-18 07:28 | P.PN_ITS ---
Subjective Subjective Interval history: patient is complaining of mild headache but other than that doing well Exam Vital Signs (past 8 hours): - 05/18/24 00:00 05/18/24 04:00 Temperature 97.9 F 97.7 F Pulse Rate 98 H 98 H Respiratory Rate 24 15 Blood Pressure 124/76 114/71 Pulse Oximetry 97 97 Oxygen Flow Rate 0 0 Oxygen Delivery Method Oximask Oxygen Flow Rate 0 Narrative Exam Narrative: gen: alert and oriented,not in distress and well appearing lungs: cta b/l cardio: RRR abd: soft, non-tender skin: right chest port insertion looks clean without any signs of infection Objective Labs 05/18/24 05:51 05/18/24 05:51 Labs: Laboratory Results - last 24 hr 05/16/24 05/18/24 16:32 05:51 WBC 10.4 D RBC 4.11 L Hgb 11.9 L Hct 34.6 L MCV 84.2 MCH 29.0 MCHC 34.4 RDW 13.0 Plt Count 80 L Neut % (Auto) 74.3 Lymph % (Auto) 14.5 L Gilchrist % (Auto) 10.3 Eos % (Auto) 0.7 L Baso % (Auto) 0.2 Neut # (Auto) 7700 H Lymph # (Auto) 1500 Gilchrist # (Auto) 1100 H Eos # (Auto) 100 Baso # (Auto) 0 Sodium 135 L Potassium 3.5 Chloride 105 Carbon Dioxide 22 BUN 20 Creatinine 0.79 Estimated GFR > 60 BUN/Creatinine Ratio 25.3 H Glucose 127 H Calcium 8.8 Total Bilirubin 0.6 AST 41 ALT 44 Alkaline Phosphatase 123 Total Protein 6.7 Albumin 3.5 Globulin 3.2 Albumin/Globulin Ratio 1.1 A.calcoaceticus-baumannii cmplx PCR Not detected Bacteroides fragilis Not detected Chela albicans (PCR) Not detected Chela auris (PCR) Not detected C. glabrata (PCR) Not detected C. krusei (PCR) Not detected C. parapsilosis (PCR) Not detected C. tropicalis (PCR) Not detected C. neoform/gattii (PCR) Not detected Enterobacterales (PCR) Detected E. cloacae complex PCR Not detected Enterococc faecalis PCR Not detected Enterococc faecium PCR Not detected E. coli (PCR) Not detected H. influenzae (PCR) Not detected Klebsiella aerogenes (PCR) Not detected Klebsiella oxytoca PCR Not detected Klebsiella pneumoniae Detected List. monocytogenes PCR Not detected N. meningitidis (PCR) Not detected Proteus species (PCR) Not detected Salmonella spp. (PCR) Not detected Serratia marcescens PCR Not detected Staphylococcus sp PCR Not detected Staph aureus (PCR) Not detected mecA/C & MREJ Resist Gene Not applicable mecA/C-Methicil Resis Gene Not applicable mcr-1 Colistin Res Gene PCR Not detected Staph epidermidis (PCR) Not detected Staph lugdunensis PCR Not detected S. maltophilia (PCR) Not detected Streptococcus sp PCR Not detected Group A Strep (PCR) Not detected Strep agalactiae (PCR) Not detected Strep pneumoniae (PCR) Not detected P. aeruginosa (PCR) Not detected Aldo/B-Vanco Res Genes Not applicable blaIMP Car res Gene PCR Not detected KPC-Carbap Res Gene PCR Not detected blaNDM Car Res Gene PCR Not detected OXA-48 Carbapenem Resis Gene (PCR) Not detected blaVIM Car Res Gene PCR Not detected CTX-M Gene Resistance (PCR) Not detected PFSH Medical History (Updated 05/17/24 @ 14:04 by Kevin Ch MD) HLD (hyperlipidemia) Diabetes HTN (hypertension) Social History household members: spouse Smoking Status: Current some day smoker alcohol intake: former Assessment & Plan Assessment & Plan narrative: #Sepsis secondary to Klebsiella bacteremia suspected biliary source -improving #Biliary Carcinoma on chemotherapy with right chest port -Continue Cefepime. Will narrow pending culture finalization and sensitivities. Plan to treat for 10days which can likely be done with high bioavail oral agent #Well Controlled Non-insulin dependant DM II #HTN -hold lisinopril / HCTZ -hold metformin / jardiance -monitor BG and will start correctional insulin if needed DVT PPx: SCD CODE: FULL Dispo: Likely discharge home in 1 to 2 days once cultures have finalized on oral antibiotics Time-Based Coding :: [TOTAL MINUTES] spent with patient and on the chart (including review of chart, obtaining history, exam, reviewing outside data, placing orders, documenting exam and treatment plan, and counseling patient) on [DATE].
[2024-05-18] MEDS: CEFEPIME 2 GM in SODIUM CHLORIDE 0.9% 100 ML IV ×2 (09:31→22:10)
[2024-05-18] MEDS: POTASSIUM CHLORIDE 20 MEQ TAB 40 MEQ PO (09:31)
[2024-05-18] MEDS: ACETAMINOPHEN 325 MG TABLET 650 MG PO ×2 (10:10→18:04)
--- NOTE | 2024-05-18 14:11 | PC.NURSE ---
1320 - Per Dr. Neville, access chest port and obtain blood cultures from port. All further IV antibiotics to be run through chest port.
--- NOTE | 2024-05-18 15:12 | CM.DPNOTE ---
DCP Note WASHING TUB OPERATOR reviewed EMR Per chart review, pt fever better today. Per hospitalist in morning rounds, another day or two for cultures to finalize and then dc home on PO abx likely. No new CM needs WASHING TUB OPERATOR did not meet with pt today due to triaging needs. P: no obvious/identified barriers to safe dc home with spouse at this time. CM team will continue to follow closely NATHALY Christianson
[2024-05-18] MEDS: ATORVASTATIN 20 MG TABLET 40 MG PO (22:10)
[2024-05-19 04:00] VITALS: BP 128/86; PULSE 90; RESP 17
[2024-05-19] MEDS: IBUPROFEN 400 MG TABLET PO (05:12)
[2024-05-19] MEDS: PSEUDOEPHEDRINE 30 MG TABLET PO (05:13)
[2024-05-19 05:35] LABS: BUN Creatinine Ratio 22.7 (6-22); Blood Urea Nitrogen 17 mg/dL (9-20); Calcium 8.9 mg/dL (8.4-10.2); Carbon Dioxide 26 mmol/L (22-32); Chloride 102 mmol/L (98-107); Estimated Glomerular Filt Rate > 60 mL/min (>60); Glucose 115 mg/dL (70-100); HEMOLYSIS < 15 (0-50); Potassium 3.6 mmol/L (3.4-5.1); Sodium 133 mmol/L (137-145)
--- NOTE | 2024-05-19 06:22 | PM.PN.1 ---
Exam Vital Signs (past 8 hours): - 05/19/24 04:00 Pulse Rate 90 Respiratory Rate 17 Blood Pressure 128/86 Oxygen Delivery Method Oximask Oxygen Flow Rate 0 Objective Labs 05/18/24 05:51 05/19/24 05:00 Labs: Laboratory Results - last 24 hr 05/18/24 05/19/24 05:51 05:00 Sodium 135 L 133 L Potassium 3.5 3.6 Chloride 105 102 Carbon Dioxide 22 26 BUN 20 17 Creatinine 0.79 0.75 Estimated GFR > 60 > 60 BUN/Creatinine Ratio 25.3 H 22.7 H Glucose 127 H 115 H Calcium 8.8 8.9 Total Bilirubin 0.6 AST 41 ALT 44 Alkaline Phosphatase 123 Total Protein 6.7 Albumin 3.5 Globulin 3.2 Albumin/Globulin Ratio 1.1 PFSH Medical History (Updated 05/17/24 @ 14:04 by Kevin Ch MD) HLD (hyperlipidemia) Diabetes HTN (hypertension) Social History household members: spouse Smoking Status: Current some day smoker alcohol intake: former Assessment & Plan Assessment & Plan narrative: #Sepsis secondary to Klebsiella bacteremia suspected biliary source -improving #Biliary Carcinoma on chemotherapy with right chest port -Continue Cefepime. Will narrow pending culture finalization and sensitivities. Plan to treat for 10days which can likely be done with high bioavail oral agent #Well Controlled Non-insulin dependant DM II #HTN -hold lisinopril / HCTZ -hold metformin / jardiance -monitor BG and will start correctional insulin if needed DVT PPx: SCD CODE: FULL Dispo: Likely discharge home in 1 to 2 days once cultures have finalized on oral antibiotics Time-Based Coding :: [TOTAL MINUTES] spent with patient and on the chart (including review of chart, obtaining history, exam, reviewing outside data, placing orders, documenting exam and treatment plan, and counseling patient) on [DATE].
[2024-05-19 07:53] VITALS: BP 137/96; PULSE 82; RESP 19; TEMP 35.5; O2SAT 97
[2024-05-19] MEDS: CEFEPIME 2 GM in SODIUM CHLORIDE 0.9% 100 ML IV (09:15)
--- NOTE | 2024-05-19 13:12 | CM.DPC ---
Addendum entered by NATHALY Young 05/19/24 16:20: ADD: Per [facility], no prior auth needed for IV abx from [facility] and they have pt on their schedule starting tomorrow. ROMEO updated MD who is in agreement to d/c pt home today and requesting referral to ID MD Dr. Araujo as she will continue to follow after d/c. SW faxed clinicals to [facility] ID office to review and get pt on their schedule. SW met bedside with pt and updated on above and he remains in agreement and will call spouse for transport home today and RN kindly getting the time for infusion for tomorrow for the patient. BF Original Note: DCP IV-Abx at d/c Per MD, recommendation now for 2 weeks IV Ceftriaxone Q24 at discharge. Pt stable for d/c once IV abx set up after discharge. SW met bedside with pt and spouse and discussed possible options of home infusion vs outpt Infusion Clinic and presented the [facility] brochure to review. Both spouse and pt squeamish regarding pt's port for infusions and preference is outpt Infusion Clinic at [facility]. SW made referral to [facility] just as back up to review in case [facility] unable to set up prior to tomorrow Thu and the weekend as they are only open M- and currently short staffed. SW called [facility] and faxed referral along with Physician Order form signed and completed and they will attempt to confirm if [facility] prior auth needed and will attempt to get pt on the schedule starting tomorrow. Plan: SW to follow closely for confirmation from [facility] that they can accept pt and can schedule him for his next dose tomorrow Sunday 05/20. NATHALY Young
--- NOTE | 2024-05-19 16:14 | PM.DS.1 ---
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 Since yesterday he had constant chills and low grade fever. On admission hypotensive, tachycardic, febrile. Initial workup with unremarkable CXR and UA. Complains on epigastric tenderness. He had several loose stools in the few hours of admission. Admitted with sepsis, likely GI origin with underlying stricture. 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 He was treated inpatient with cefepime until cultures fully resulted at which time he was transitioned to ceftriaxone. ID was curbsided who recommended IV antibiotics for 2wks run through his chest port. He was discharged home for daily outpatient ceftriaxone infusions. Status at Discharge Overall status at discharge: patient is back to baseline Time Spent with Patient Time spent: Less than 30 minutes Exam Vital Signs (past 8 hours): Oxygen Delivery Method Oximask Oxygen Flow Rate 0 Narrative Exam Narrative: general: well appearing, age appropriate, not in distress lungs: normal effort, CTA B/L cardio: RRR abd: soft, non-tender skin: right chest port in place, surrounding / overlying without inflammation neuro: no deficits, alert and oriented Objective Labs 05/18/24 05:51 05/19/24 05:00 Labs: Laboratory Results - last 24 hr 05/19/24 05:00 Sodium 133 L Potassium 3.6 Chloride 102 Carbon Dioxide 26 BUN 17 Creatinine 0.75 Estimated GFR > 60 BUN/Creatinine Ratio 22.7 H Glucose 115 H Calcium 8.9 PFSH Medical History (Updated 05/17/24 @ 14:04 by Kevin Ch MD) HLD (hyperlipidemia) Diabetes HTN (hypertension) Social History household members: spouse Smoking Status: Current some day smoker alcohol intake: former Discharge Assessment & Plan Assessment and Plan Assessment: #Klebsiella bacteremia #Biliary Carcinoma on chemotherapy with right chest port Plan of Treatment: Ceftriaxone 2g/day as outpatient infusion end date 05/30 to complete 2wks of therapy Follow-up with PCP within 1wk Follow-up with infectious disease within 1-2wks Continue home medications Discharge Plan Discharge Plan Patient Disposition: Home Discharge orders & Medications Prescriptions: Continued atorvastatin 40 mg Tablet 40 mg PO DAILY metformin 500 mg Tablet 500 mg PO DAILY lisinopril-hydrochlorothiazide 20-12.5 mg Tablet 1 tab PO DAILY ibuprofen 800 mg Tablet 800 mg PO Q6H PRN (Reason: Pain (Scale Score 4-6)) prochlorperazine maleate [Compazine] 10 mg Tablet 10 mg PO Q6H PRN (Reason: Nausea) allopurinol 100 mg Tablet 100 mg PO BID PRN (Reason: Gout) ondansetron 8 mg Tablet,Disintegrating 8 mg PO Q8H PRN (Reason: Nausea) colchicine 0.6 mg Tablet 0.6 mg PO DAILY PRN (Reason: Gout) Jardiance 25 mg Tablet 12.5 mg PO DAILY Follow up/Referrals: Michelle Araujo MD [Non-Staff] - 1 Week (Dr Araujo @ [facility] [phone] Klebsiella bacteremia . Biliary carcinoma with port) Provider,Epi MARTINEZ [Primary Care Provider] - Visit Report/Discharge Packet Stand Alone Forms: Patient Portal/API, Stroke Signs & Symptoms Discharge Data Primary Care Provider: Epi Arrington
== END 2024-05-19 17:50 | disposition home or self-care (01) | DRG 872 ==
LOC: ED 21:44 → AC 22:39 → ICU 05-17 08:27 → AC 05-17 08:57
PROVIDERS: Emergency Medicine; Student in an Organized Health Care Education/Training Program; Admitting Provider Internal Medicine; Emergency Provider Emergency Medicine; Referring Provider Emergency Medicine; Visit Provider Internal Medicine
DX: A41.89 Other specified sepsis (principal); N17.9 Acute kidney failure, unspecified; C22.1 Intrahepatic bile duct carcinoma; I10 Essential (primary) hypertension; E11.9 Type 2 diabetes mellitus without complications; E78.5 Hyperlipidemia, unspecified; B96.1 Klebsiella pneumoniae [K. pneumoniae] as the cause of diseases classified elsewhere; F17.200 Nicotine dependence, unspecified, uncomplicated; Z79.84 Long term (current) use of oral hypoglycemic drugs
CPT/HCPCS: 0241U; 36415; 70450; 71045; 80048; 80053; 80076; 81001; 82962; 83605; 83690; 84145; 85025; 87040; 87086; 87154; 87186; 87493; 87507; 87797; 93005; 96365; 96375; 99284; J0136; J0692; J1200; J1642; J2470; J2765

== ENCOUNTER 2024-06-20 11:54 | Emergency (ER) | payer OTHER, SELFPAY ==
[2024-05-16 22:53] VITALS: BMI 31.4
[2024-06-20] VITALS (16 sets, daily range): BP systolic 122–141; BP diastolic 76–97; PULSE 97–116; RESP 16–29; TEMP 37.3–37.4; O2SAT 96–100; BMI 30.9
--- NOTE | 2024-06-20 12:43 | DI.RAD.S_ITS ---
PROCEDURE: XR CHEST 1V INDICATIONS: suspected sepsis, pain in knee for 2 weeks TECHNIQUE: One view of the chest was acquired. COMPARISON: [facility], CR, XR CHEST 1V, 05/16/2024, 18:15. FINDINGS: Surgical changes and devices: Unchanged right Port-A-Cath. Lungs and pleura: Lungs are clear. No pleural effusions or pneumothorax. Mediastinum: Mediastinal contours appear normal. Heart size is normal. Bones and chest wall: No suspicious bony lesions. Overlying soft tissues appear unremarkable. IMPRESSION: No acute pulmonary process. Dictated by: Iva Mancuso M.D. on 06/20/2024 at 13:59 Approved by: Iva Mancuso M.D. on 06/20/2024 at 13:59
--- NOTE | 2024-06-20 12:43 | EKG_ITS ---
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
--- NOTE | 2024-06-20 13:08 | PC.NURSE ---
Patient is unable to bear weight on right extremity, painful with palpation. Patient is tachy in triage, provider notified of septic risk. Blood cultures drawn. Patient is on augmentin for past blood infection
--- NOTE | 2024-06-20 13:09 | ED.EXTPRO ---
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 Is on durvalumab, gemcitabine, and cisplatin. Presents for right leg/knee pain ongoing persistent for the past several days. He does have a history of bacteremia and is on amoxicillin for life. He states he does have a history of gout as well and it normally does occur in his right knee, however he has not been able to take his allopurinol because he states that he was told he can not take this while on his current medication regimen. States that he did call his oncologist and was instructed to come into the ED for further evaluation treatment. He states that he just completed a course of steroids for his pain in his right knee. He denies any numbness weakness tingling to the lower extremity Related Data Home Medications Medication Instructions Recorded Confirmed allopurinol 100 mg tablet 100 mg PO BID PRN Gout 05/16/24 05/16/24 atorvastatin 40 mg tablet 40 mg PO DAILY 05/16/24 05/16/24 colchicine 0.6 mg tablet 0.6 mg PO DAILY PRN Gout 05/16/24 05/16/24 empagliflozin 25 mg tablet 12.5 mg PO DAILY 05/16/24 05/16/24 (Jardiance) ibuprofen 800 mg tablet 800 mg PO Q6H PRN Pain (Scale 05/16/24 05/16/24 Score 4-6) lisinopril 20 1 tab PO DAILY 05/16/24 05/16/24 mg-hydrochlorothiazide 12.5 mg tablet metformin 500 mg tablet 500 mg PO DAILY 05/16/24 05/16/24 ondansetron 8 mg disintegrating 8 mg PO Q8H PRN Nausea 05/16/24 05/16/24 tablet prochlorperazine maleate 10 mg 10 mg PO Q6H PRN Nausea 05/16/24 05/16/24 tablet (Compazine) Previous Rx's Medication Instructions Recorded oxycodone-acetaminophen 10 mg-325 1 tab PO Q8H PRN pain 5 days #15 06/20/24 mg tablet (Percocet) tabs Allergies Allergy/AdvReac Type Severity Reaction Status Date / Time No Known Drug Allergies Allergy Verified 06/20/24 12:29 Review of Systems Review of Systems Narrative: General: Denies fever, chills, weight loss HEENT: Denies headache, eye drainage, eye irritation, head trauma, sore throat, voice change Cardiovascular: Denies any chest pain, palpitations, shortness of breath, tachycardia Respiratory: Denies any shortness of breath, cough, wheeze, stridor GI/: Denies any abdominal pain, nausea, vomiting, diarrhea, bright red blood per rectum, melanotic stools, urinary frequency, urinary retention, dysuria, hematuria MSK: Positive right knee pain swelling Skin: Denies any rashes, lesions, discoloration Neuro: Denies any headache, lightheadedness, dizziness, fainting, weakness Psych: Denies SI/HI Patient History Medical History (Updated 06/20/24 @ 18:04 by Maxwell Dahl DO) HLD (hyperlipidemia) Diabetes HTN (hypertension) Social History household members: spouse Smoking Status: Never smoker alcohol intake: former Smoking Status: Never smoker tobacco type: vaping alcohol intake frequency: 0-2 drinks per day Substance Use Type: does not use Exam Narrative Exam Narrative: General: Cooperative, comfortable, well-developed, not in acute distress HEENT: Normocephalic, atraumatic, PERRLA, normal sclera, eyelids normal, Neck: Active full range of motion, atraumatic Chest: Normal to inspection, negative crepitus, no overlying erythema ecchymosis Respiratory: Normal respiratory effort, not in acute respiratory distress, clear to auscultation bilaterally negative cough, wheeze, tachypnea, rhonchi, rales Cardiology: Regular rate rhythm negative gallop, murmur, rubs GI/: Normal to inspection, soft, nonrigid, no tenderness to palpation, exam deferred MSK: Patient with mild tenderness to palpation of the right knee, but no overlying erythema, decreased range of motion active and passive secondary to pain neurovascularly intact Skin: No rashes lesions noted Neuro: Alert awake oriented x3, moves all 4 extremities spontaneously, cranial nerves intact, able to answer all questions appropriately follows commands appropriately Psych: Cooperative, negative suicidal or homicidal ideations Initial Vital Signs Initial Vital Signs: Vital Signs Temperature 99.3 F 06/20/24 12:23 Pulse Rate 110 H 06/20/24 12:23 Respiratory Rate 16 06/20/24 12:23 Blood Pressure 135/85 06/20/24 12:23 Pulse Oximetry 99 06/20/24 12:23 Oxygen Delivery Method Room Air 06/20/24 12:23 Procedures Joint Aspiration Joint Asp./Inject. 1: Time of procedure: 15:20 Side of body: right Joint Aspirated: knee Ultrasound Guidance: No Skin Prep: Chlorhexidine Local Anesthetic: lidocaine 1% Fluid Obtained: clear (Slightly blood-tinged) Total fluid obtained (mL): 20 Complications: none Course Orders Ordered: ED Orders 06/20/24 12:43 XR chest 1V Stat EKG-12 Lead Stat RT Consult Eval and Treat NOW 06/20/24 12:59 CRP [C-Reactive Protein Quant] Stat Complete Blood Count AUTO DIFF Stat Comprehensive Metabolic Panel Stat ESR [Erythrocyte Sedimentation Rate] Stat Lactate (Lactic Acid) Stat Lipase Stat Procalcitonin Stat 06/20/24 13:18 US periph venous low extrem rt Stat XR knee RT 3V Stat 06/20/24 13:22 Blood Culture Stat 06/20/24 13:49 PTT Partial Thromboplastin Hebert Stat Prothrombin Time INR Stat 06/20/24 15:30 Body Fluid Culture Stat Cell Count w Diff Body Fluid Stat Crystals Body Fluid - IN-HOUSE Stat Ondansetron HCl (Ondansetron 4 Mg/2 Ml Inj) 4 mg IV NOW PRN PRN Reason: Nausea And Vomiting Ondansetron HCl (Ondansetron 4 Mg Odt) 4 mg SL NOW PRN PRN Reason: Nausea And Vomiting Discontinued Medications Sodium Chloride (Normal Saline 0.9%) 1,000 mls @ 1,000 mls/hr IV BOLUS ONE Stop: 06/20/24 13:42 Last Infusion: 06/20/24 15:17 Dose: Infused Documented By: Admin: 06/20/24 13:14 Dose: 1,000 mls/hr Documented By: LEXIE Morphine Sulfate (Morphine 4 Mg/Ml Inj) 4 mg IV NOW ONE Stop: 06/20/24 13:21 Last Admin: 06/20/24 13:29 Dose: 4 mg Documented By: LEXIE Morphine Sulfate (Morphine 4 Mg/Ml Inj) 4 mg IV NOW ONE Stop: 06/20/24 14:08 Last Admin: 06/20/24 14:33 Dose: 4 mg Documented By: LEXIE Vital Signs Vital signs: Vital Signs - 8 hr 06/20/24 12:23 06/20/24 12:48 06/20/24 12:49 Temperature 99.3 F Pulse Rate 110 H 107 H Respiratory Rate 16 Blood Pressure 135/85 Pulse Oximetry 99 100 97 Oxygen Delivery Method Room Air 06/20/24 12:49 06/20/24 13:00 06/20/24 13:00 Temperature Pulse Rate 105 H Respiratory Rate 19 Blood Pressure 140/97 H 129/87 Pulse Oximetry 98 Oxygen Delivery Method Room Air 06/20/24 13:30 06/20/24 13:31 06/20/24 13:31 Temperature Pulse Rate 98 H 98 H Respiratory Rate 29 H 26 H Blood Pressure 132/91 H Pulse Oximetry 98 99 Oxygen Delivery Method 06/20/24 14:00 06/20/24 14:00 06/20/24 14:30 Temperature Pulse Rate 99 H 100 H Respiratory Rate 18 22 Blood Pressure 132/83 Pulse Oximetry 97 98 Oxygen Delivery Method Room Air 06/20/24 14:30 06/20/24 15:00 06/20/24 15:00 Temperature Pulse Rate 102 H Respiratory Rate 24 Blood Pressure 130/83 141/90 H Pulse Oximetry 97 Oxygen Delivery Method 06/20/24 15:30 06/20/24 15:30 06/20/24 16:04 Temperature 99.1 F Pulse Rate 101 H Respiratory Rate 26 H Blood Pressure 134/89 Pulse Oximetry 97 Oxygen Delivery Method Room Air MDM - Extremity (Nontraumatic) Lab Data 06/20/24 12:59 06/20/24 12:59 Labs: Lab Results 06/20/24 06/20/24 06/20/24 Range/Units 12:59 13:49 15:30 WBC 19.0 H (4.5-11.0) X10^3/uL RBC 4.99 (4.5-5.9) X10^6/uL Hgb 13.7 (13.5-17.5) g/dL Hct 41.3 (41-53) % MCV 82.7 (80-100) fL MCH 27.5 (26-34) PG MCHC 33.3 (30-36) % RDW 13.2 (11.6-14.8) % Plt Count 462 H (150-400) X10^3/uL Neut % (Auto) 77.9 H (50-75) % Lymph % (Auto) 10.6 L (25-40) % [place] % (Auto) 9.6 (3-14) % Eos % (Auto) 1.4 L (2-4) % Baso % (Auto) 0.5 (0-2) % Neut # (Auto) 51179 H (5438-3401) /uL Lymph # (Auto) 2000 (0207-3872) /uL [place] # (Auto) 1800 H (0-900) /uL Eos # (Auto) 300 (0-450) /uL Baso # (Auto) 100 (0-100) /uL ESR 63 H (0-15) MM/HR PT 12.1 (9.4-12.5) SECONDS INR 1.1 (0.9-1.3) APTT 31 (25.1-36.5) SECONDS Sodium 134 L (137-145) mmol/L Potassium 4.1 (3.4-5.1) mmol/L Chloride 97 L (98-107) mmol/L Carbon Dioxide 23 (22-32) mmol/L BUN 30 H (9-20) mg/dL Creatinine 0.89 (0.66-1.25) mg/dL Estimated GFR > 60 (>60) mL/min BUN/Creatinine Ratio 33.7 H (6-22) Glucose 140 H (70-100) mg/dL Lactate 1.5 (0.7-2.1) mmol/L Calcium 10.0 (8.4-10.2) mg/dL Total Bilirubin 0.6 (0.2-1.3) mg/dL AST 27 (17-59) IU/L ALT 30 (<50) IU/L Alkaline Phosphatase 106 (38-126) U/L C-Reactive Protein 2.8 H (<1.0) mg/dL Total Protein 8.8 H (6.3-8.2) g/dL Albumin 4.7 (3.5-5.0) g/dL Globulin 4.1 (1.7-4.1) g/dL Albumin/Globulin Ratio 1.1 (1.0-2.8) Lipase 231 (23-300) U/L Procalcitonin 0.100 (<0.5) ng/mL Fluid Color Red Fluid Appearance Turbid Fluid RBC TNP Fld Tot Nucleated Cell TNP Fluid Neutrophils % 95 % Fluid Lymphocytes % 2 % Fluid Meso/Macro/[place] % 4 % Fluid Crystals Monosodium urate msu H (NONE) Body Fluid Clot Specimen clotted MDM Narrative Medical decision making narrative: Patient is a 43-year-old male with a history of Klebsiella bacteremia chronically on Augmentin, gout, hypertension, hyperlipidemia, pancreatic adenocarcinoma status post stent exchange on 06/15/2024 presenting for right lower extremity pain primarily to his right knee. States he has not been taking his allopurinol secondary to starting Augmentin. He states that the pain has gotten worse did call his infectious disease doctor who instructed come into the ED for further evaluation treatment. He has not on any blood thinners. Ultrasound is negative for a DVT, x-ray without any acute bony abnormalities. Patient tolerated bedside arthrocentesis by me. Was positive for gout. Patient with leukocytosis of 19 however patient did complete dose of steroids he has not complaining of any other symptoms, he states that he has colchicine at home we will send him home with pain medications and instructed patient to take NSAIDs and colchicine for his acute gouty flare-up. Instructed follow up with his primary care doctor and his hematology oncologist as needed. Patient verbalized understanding of this and agrees to being discharged home with outpatient follow up Discharge Plan Departure Patient Disposition: Home Clinical Impression: Gout Activity Restrictions/Additional Instructions: Please take your colchicine as well as your NSAIDs for your gout Please read the discharge instructions sheet carefully and bring all papers to all doctor follow-up visits, as it may contain information that your doctor may want to see. Disease processes change and evolve, if your symptoms worsen or if you develop any new symptoms that are concerning to you please return for evaluation. Your evaluation today does not show any evidence of any life-threatening/serious illnesses requiring admission to the hospital or surgery. Please follow-up with your doctor for re-evaluation in approximately 1 day. Seek immediate medical attention for any worrisome symptoms. Prescriptions: New oxycodone-acetaminophen [Percocet] 10-325 mg tablet 1 tab PO Q8H PRN (Reason: pain) 5 Days Qty: 15 0RF No Action atorvastatin 40 mg Tablet 40 mg PO DAILY metformin 500 mg Tablet 500 mg PO DAILY lisinopril-hydrochlorothiazide 20-12.5 mg Tablet 1 tab PO DAILY ibuprofen 800 mg Tablet 800 mg PO Q6H PRN (Reason: Pain (Scale Score 4-6)) prochlorperazine maleate [Compazine] 10 mg Tablet 10 mg PO Q6H PRN (Reason: Nausea) allopurinol 100 mg Tablet 100 mg PO BID PRN (Reason: Gout) ondansetron 8 mg Tablet,Disintegrating 8 mg PO Q8H PRN (Reason: Nausea) colchicine 0.6 mg Tablet 0.6 mg PO DAILY PRN (Reason: Gout) Jardiance 25 mg Tablet 12.5 mg PO DAILY Referrals: ProviderEpi [Primary Care Provider] - Stand Alone Forms: Patient Portal/API
[2024-06-20] MEDS: SODIUM CHLORIDE 0.9% 1,000 ML 1000 ML IV (13:14)
--- NOTE | 2024-06-20 13:18 | DI.US.S_ITS ---
PROCEDURE: US PERIPH VENOUS LOW EXTREM RT INDICATIONS: swelling and pain TECHNIQUE: Real-time imaging, as well as color and pulse Doppler interrogation, were performed of the lower extremity deep veins from the inguinal ligament to the popliteal fossa, with documentation of the visualized calf veins. COMPARISON: None. FINDINGS: The common femoral, femoral, popliteal, and the visualized calf veins are normally compressible, and free of intraluminal thrombus. Color and pulse Doppler demonstrate normal phasic intraluminal flow. There is normal augmentation response to distal compression maneuver. IMPRESSION: No findings of lower extremity deep venous thrombosis. Dictated by: Iva Mancuso M.D. on 06/20/2024 at 14:41 Approved by: Iva Mancuso M.D. on 06/20/2024 at 14:41
--- NOTE | 2024-06-20 13:18 | DI.RAD.S_ITS ---
PROCEDURE: XR KNEE RT 3V INDICATIONS: pain and swelling TECHNIQUE: 3 views of the knee were acquired. COMPARISON: None. FINDINGS: Bones: No fractures or dislocations. No suspicious bony lesions. Soft tissues moderate joint effusion. No suspicious soft tissue calcifications. IMPRESSION: Moderate effusion. No visualized acute fracture or dislocation. However, if clinical concern and/or pain persist, short interval imaging followup in 7-10 days is recommended, as occult injury cannot be definitively excluded. Dictated by: Iva Mancuso M.D. on 06/20/2024 at 13:59 Approved by: Iva Mancuso M.D. on 06/20/2024 at 13:59
[2024-06-20 13:27] LABS: Add Manual Diff / Slide Review NO; Basophils Absolute Auto 100 /uL (0-100); Basophils Percent Auto 0.5 % (0-2); Eosinophils Absolute Auto 300 /uL (0-450); Eosinophils Percent Auto 1.4 % (2-4); Hematocrit 41.3 % (41-53); Hemoglobin 13.7 g/dL (13.5-17.5); Lymphocytes Absolute Auto 2000 /uL (1100-4500); Lymphocytes Percent Auto 10.6 % (25-40); Mean Corpuscular HGB Conc 33.3 % (30-36); Mean Corpuscular Hemoglobin 27.5 PG (26-34); Mean Corpuscular Volume 82.7 fL (80-100); Monocytes Absolute Auto 1800 /uL (0-900); Monocytes Percent Auto 9.6 % (3-14); Neutrophils Absolute Auto 14800 /uL (1500-7000); Neutrophils Percent Auto 77.9 % (50-75); Platelet Count 462 X10^3/uL (150-400); Red Blood Cell Count 4.99 X10^6/uL (4.5-5.9); Red Cell Distribution Width 13.2 % (11.6-14.8)
[2024-06-20] MEDS: MORPHINE 4 MG/ML INJ IV ×2 (13:29→14:33)
[2024-06-20 13:46] LABS: Alanine Aminotransferase 30 IU/L (<50); Albumin 4.7 g/dL (3.5-5.0); Albumin Globulin Ratio 1.1 (1.0-2.8); Alkaline Phosphatase 106 U/L (38-126); Aspartate Aminotransferase 27 IU/L (17-59); BUN Creatinine Ratio 33.7 (6-22); Bilirubin Total 0.6 mg/dL (0.2-1.3); Blood Urea Nitrogen 30 mg/dL (9-20); Carbon Dioxide 23 mmol/L (22-32); Chloride 97 mmol/L (98-107); Estimated Glomerular Filt Rate > 60 mL/min (>60); Globulin 4.1 g/dL (1.7-4.1); Glucose 140 mg/dL (70-100); HEMOLYSIS < 15 (0-50); Lipase 231 U/L (23-300); Potassium 4.1 mmol/L (3.4-5.1); Sodium 134 mmol/L (137-145); Total Protein 8.8 g/dL (6.3-8.2)
[2024-06-20 13:47] LABS: Lactate (Lactic Acid) 1.5 mmol/L (0.7-2.1)
[2024-06-20 13:50] LABS: Erythrocyte Sedimentation Rate 63 MM/HR (0-15)
[2024-06-20 14:01] LABS: INR 1.1 (0.9-1.3); Prothrombin Time 12.1 SECONDS (9.4-12.5)
[2024-06-20 14:04] LABS: PTT Partial Thromboplastin Tim 31 SECONDS (25.1-36.5)
[2024-06-20 15:01] LABS: C-Reactive Protein Quant 2.8 mg/dL (<1.0)
[2024-06-20 15:57] LABS: Crystals Body Fluid - IN-HOUSE Monosodium Urate MSU
[2024-06-20 16:05] LABS: Body Fluid Appearance TURBID; Body Fluid Color RED
[2024-06-20 16:06] LABS: Body Fluid Clotted? SPECIMEN CLOTTED
[2024-06-20 16:30] LABS: Lymphocytes Body Fluid 2 %; MESO/MACRO/MONO Body Fluid 4 %; Neutrophils Body Fluid 95 %
== END 2024-06-20 18:12 | disposition home or self-care (01) ==
PROVIDERS: Emergency Provider Student in an Organized Health Care Education/Training Program
DX: M10.9 Gout, unspecified (principal); R00.0 Tachycardia, unspecified; I10 Essential (primary) hypertension; R79.89 Other specified abnormal findings of blood chemistry; Z79.899 Other long term (current) drug therapy
CPT/HCPCS: 20610; 36415; 71045; 73562; 80053; 83605; 83690; 84145; 85025; 85610; 85651; 85730; 86140; 87040; 87070; 87075; 87205; 89051; 89060; 93005; 93971; 96361; 96374; 96376; 99284; J2270